=== PATIENT | male | born 2000 | race Caucasian/White ===

== ENCOUNTER 2023-08-29 18:02 | Inpatient (IN) ==
[~2023-08-29 18:02] MED LIST: KETAMINE HCL INJ 50 MG/ML 10 ML VIAL IV ONE; ROCURONIUM BROMIDE 10 MG/ML 5 ML VIAL IV ONE
[2023-08-29] MEDS ORDERED: STAT IV Infusion **Titration per Protocol STA ×3 (18:03→20:21)
--- OUTSIDE RECORDS SUMMARY | 2023-08-29 18:05 | External Medical Summary | Continuity of Care Document ---
Author Name Unknown Organization [facility] [address] [id number] Address [address] [place], [place] [id number] Encounter [facility] [id number] Date(s): 03/18/23 - 03/18/23 [facility] [address] [facility] [address] [facility] Medicine [address] [facility], [address] [address] Encounter Diagnosis Right foot pain(Discharge Diagnosis) - 03/18/23 Hallux valgus of right foot(Discharge Diagnosis) - 03/18/23 Discharge Disposition: Home or Self Care Attending Physician: DO Savage Mehwish Referring Physician: DO Savage Mehwish Allergies, Adverse Reactions, Alerts Substance Reaction Severity Status tree nuts Anaphylaxis Severe Active peanuts Anaphylaxis Severe Active Assessment and Plan Extracted from: Title:Office Visit Note Author:DO Savage Me hwish Date:03/18/23 1.Right foot pain 2.Hallux valgus of right foot Discussed that I suspect symptoms are likely due to MTP joint pain- from mild hallux valgus. Recommend use of oral NSAIDs, trial of a Srinivasan's extension insert. If this does not help with his symptoms, could consider US-guided injection of 1st MTP, along with US evaluation. Could consider MRI forefoot evaluation. Plan for f/u if not improving. Immunizations Given and Recorded Vaccine Date Status Refusal Reason tetanus/diphtheria/pertuss, acel (Tdap) 09/29/11 R ecorded Medications EpiPen 2-Guillermo 0.3 mg injectable kit Start: 12/02/18 9:01:00 EDT, 0.3 mg =, IM, ONCE, PRN: as needed for anaphylaxis Start Date: 12/02/18 Status: Ordered ProAir HFA 90 mcg/inh inhalation aerosol Start: 05/06/22 16:54:00 EST, 2 puff, inhaled, qid, Disp# 18 g, Refills: 3, PRN: as needed for wheezing, Pharmacy: [id number] Start Date: 05/06/22 Status: Ordered Mental Status 03/18/23 Barriers to Learning one year None evide nt Mandatory Health Literacy Documentation Yes Health Literacy Communication Barriers N ever Primary Language Luxembourgish Problem List Condition Confirmation Course Effective Dates Status Health St atus Informant Peanut allergy Confirmed Active Asthma Confirmed Active Diagnosis Diagnosis Type Effective Dates Health Status Cl inical Service Informant Right foot pain Discharge Diagnosis 03/18/23 Hallux valgus of right foot Discharge Diagnosis 03/18/23 Vital Signs Most recent to oldest [Reference Range]: 1 Height 183.5 cm (03/18/23 11:01 AM) Patient Weight 77.8 kg (03/18/23 11:01 AM) Body Mass Index 23.11 kg/m2 (03/18/23 11:01 AM) Social History Social History Type Response Smoking Status Never smoked cigaret guerda Sex Male Ortho Outpt Note * DO Savage Mehwish: PERFORM Event Display: Ortho Outpt Note Authored Date: Chief Complaint right foot pain History of Present Illness 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 Notes that his symptoms started approximately 1-2 months ago. He denies any acute injuryrelated to the onset. He denies any swelling or bruising. He notes that for 95% of the day does not hurt, but when he does dives to the righthe has excruciating pain that last forapproximately 1 minute. It is then sore for a period of time afterwards. He notes that he does not have any pain with running and sprinting. He notes that if he sits with his toes extendedwith axial pressure hedoes have some more soreness and pain. Over the past 3 weeks he has beenusing some tapewhich has not been helpful. He has also been usinga carbon fibermetatarsal insertwhich she has noted significantimprovement with. He has also beengoing to rehab and doing some strengthening of his intrinsic foot muscles. Physical Exam Vitals & Measurements HT:183.5cm WT:77.8kg WT:77.800kg(Dosing) BMI:23.11 PHQ2 Data(Data Documented on:03/18/2023 11:00) Emotional health assessment NEGATIVE GENERAL APPEARANCE: The patient is alert, oriented and in no acute distress. HEENT: Head is normocephalic/atraumatic. LUNGS: Respirations even and unlabored. EXTREMITIES: No cyanosis, clubbing or edema. NEUROLOGICAL: Grossly non-focal exam. SKIN: Warm and dry without any rash. MUSCULOSKELETAL: _ Right Foot/Ankle Exam Appearance: no edema no ecchymosisbruising no erythema mild hallux valgus noted Palpation: No bony TTP ROM: great toe flexion and extension is wnl, notes some discomfort with end ROM extension Strength: 5/5 great toe flexion and extension Sensation: sensation to light touchintact overL4, L5 and S1 dermatomes Diagnostic Results XR foot RT min 3V routine HISTORY: 22 years-old Male RIGHT FOOT PAIN acute right-sided foot pain COMPARISON: 07/31/2022 TECHNIQUE: 3 views of the right foot FINDINGS: Os trigonum. No acute fracture, dislocation or opaque foreign body. Unremarkable soft tissues. IMPRESSION: No acute fracture or dislocation. ACT 112: Negative or not required by law. The above report was generated using voice recognition software. It may contain grammatical, syntax or spelling errors. Electronically signed by: Brian Teran M.D. 03/18/2023 11:24 AM Assessment/Plan 1.Right foot pain 2.Hallux valgus of right foot Discussed that I suspect symptoms are likely due to MTP joint pain- from mild hallux valgus. Recommend use of oral NSAIDs, trial of a Srinivasan's extension insert. If this does not help with his symptoms, could consider US-guided injection of 1st MTP, along with US evaluation. Could consider MRI forefoot evaluation. Plan for f/u if not improving. Problem List/Past Medical History Ongoing Asthma Peanut allergy Medications albuterol(ProAir HFA 90 mcg/inh inhalation aerosol), 2 puff, inhaled, qid, PRN, 3 refills EPINEPHrine(EpiPen 2-Guillermo 0.3 mg injectable kit), 0.3 mg, IM, ONCE, PRN Allergies peanuts(Severe)Anaphylaxis tree nuts(Severe)Anaphylaxis Social History Smoking Status Never smoked cigarettes Family History Asthma: Mother. Heart disease: Unknown. Thyroid disease: Unknown. Health Status Family Member(s) Immunizations Vaccine Date Status tetanus/diphtheria/pertuss, acel (Tdap) 09/29/2011 Recorded Recommendations Health Maintenance Pending(in the next year) OverDue Adult Influenza Vaccine due12/06/22and every 1year Due Adult COVID-19 Vaccination due03/18/23Unknown Frequency Adult Tdap/Td Vaccine due03/18/23Unknown Frequency Hepatitis C Screening due03/18/23One-time only Pneumococcal Vaccine Adults and Adolescents with Chronic Illness due03/18/23One-time only Due In Future Body Mass Index not due until03/17/24and every 1year Satisfied(in the past 1 year) Satisfied Body Mass Index on03/18/23.Satisfied by [facility] [place] Electronic Signature on File Electronically Reviewed/Signed by: Karen Savage DO Author Signature Dt/Tm:03/18/2023 12:03 PM Division of Sports Medicine MM Patient Care team information Care Team Related Persons Name: YAMILETH NOEL Address: [address] [id number]
[2023-08-29] MEDS ORDERED: Patient's ALLERGY Info needs ENTERED SCH (18:15)
[2023-08-29] MEDS: EPINEPHrine/NSS 4 MG/254 ML BAG IV SCH (18:19)
--- NOTE | 2023-08-29 18:19 | Emergency Department Note ---
Impression & Plan Anaphylaxis, Allergic reaction, Acute respiratory distress, Acute respiratory acidosis ED Provider Note NAME: HAZEL DOMINGUEZ AGE: 23 SEX: M : 2000 ARRIVES VIA: Ambulance INFORMANT: EMS, the patient's girlfriend ED PROVIDER(S): Neo Lobo DO CHIEF COMPLAINT: Allergic reaction. HPI: The patient is a 23-year-old male who has a history of nut allergy who thinks he may have eaten a cookie that contained some sort of nuts. He started having symptoms around 5 PM. He went to a local drugstore and was given an EpiPen a DuoNeb and Benadryl. He took all these medications with only minimal relief. He started to worsen and his girlfriend called 911. The patient started to worsen on arrival. I did receive a prehospital notification. The patient received IM epinephrine steroids and Benadryl prior to arrival. He was also treated with IV epinephrine prior to arrival. He was placed on a nonrebreather mask. He was given a DuoNeb prior to arrival. History was very limited secondary to the patient's critical status. ROS: See above HPI for pertinent positives & negatives. A total of 10 systems reviewed and were otherwise negative. PAST MEDICAL HISTORY: See Below PAST SURGICAL HISTORY: See Below FAMILY HISTORY: See Below SOCIAL HISTORY: See Below HOME MEDICATIONS: See Below ALLERGIES: See Below VITALS: See Below PHYSICAL EXAMINATION: GENERAL: The patient is obtunded and not able to answer questions. EYES: The conjunctivae are injected bilaterally. The pupils are round and reactive. EARS, NOSE, MOUTH AND THROAT: The nose is without any evidence of any deformity. Mild swelling was noted on the upper lip as well as the tongue NECK: The neck is nontender and supple. RESPIRATORY: Shallow ineffective respirations were noted bilaterally. There is very poor air movement with bronchospasm bilaterally CARDIOVASCULAR: Regular rate and rhythm noted there no murmurs rubs or gallops normal S1 normal S2. GASTROINTESTINAL: The abdomen is soft. Abdomen is nontender. MUSCULOSKELETAL/EXTREMITIES: There is no evidence of gross deformity full range of motion is noted in the hips and shoulders. SKIN: Skin is warm and dry. There is diffuse urticaria noted. There is no pedal edema NEUROLOGIC: Patient is obtunded and will not follow commands or answer questions. He localizes pressure stimuli and appears to move both extremities symmetrically but minimally. MEDICAL DECISION MAKING: The patient is a 23-year-old male who presented to the emergency department and anaphylaxis. The patient was treated appropriately prior to arrival. Himself he took an EpiPen as well as Benadryl. He was also given a bronchodilator at the pharmacy. This did not significantly relieve his symptoms so 911 was called. The patient further received epinephrine and steroids. Upon arrival to the emergency department the patient was obtunded. He was in need of immediate airway intervention. The patient was intubated in the usual fashion. He was placed on an epinephrine drip as well as sedation. He was treated with IV fluids in emergency department. He was also treated with Pepcid. I discussed the patient's laboratory and radiographic studies with his family members. I discussed his condition with the gamma operator as well as the on-call [facility] hospitalist group. On reevaluation his urticarial rash had significantly improved. The patient also had improvement of his pulse rate. The epinephrine drip was weaned down. He was treated with an hour-long DuoNeb in the emergency department. Initial pH was below 7. Subsequent pH was improved but not quite normal. Triage Nursing notes reviewed. Prior medical records reviewed Vital Signs: reviewed and remarkable for initial hypertension and tachycardia. The patient was also hypoxic on arrival. Differential diagnosis: Allergic reaction, anaphylaxis, urticaria, Bagley-Garland syndrome, toxic epidermal necrolysis, erythema multiforme, contact dermatitis, cellulitis, as well as other pathologies. ER treatment provided: See below Diagnostics interpreted by me: ECG: EKG was obtained in the emergency department. My interpretation is sinus tachycardia at 125 bpm. There is no ectopy. There is no acute ST segment abnormalities noted. No previous tracing was available. Cardiac Monitoring: An order was placed for continuous cardiac monitoring. The monitor shows a rate of 108 bpm with sinus tachycardia. Laboratory studies: As stated above and show below. Imaging studies: See below. Radiographic imaging was reviewed by myself Consultation(s): I discussed this case with Dr. Hyde who is on-call for the gamma operator group. ED COURSE: Procedures: Endotracheal Intubation Indication anaphylaxis. The patient was on 100% oxygen via NRB prior to the procedure. Suction, airway equipment, RSI drugs, respiratory equipment, and appropriate personnel were prepared prior to the initiation of the procedure. A time out was taken. Induction was performed with ketamine and rocuronium. After observing the clinical benefit of the medications, the airway was easily visualized utilizing a glide scope. A 8.0 size ETT tube was placed atraumatically to 25 cm using standard technique. The cuff inflated without signs of malfunction. There were bilateral breath sounds, positive colormetric change, no gastric sounds, a good capnography waveform, and post procedure pulse oximetry was 94%. Post intubation sedation and paralysis was administered using propofol. After x-ray the endotracheal tube was advanced 1 cm. There were no complications. Critical Care: I have personally spent greater than 55 minutes of critical care time in the direct management of this patient. This includes bedside care, interpretation of diagnostic studies, and testing, discussion with consultants, patient, and family members, and other required patient management activities. This 55 minutes is in excess of all separately billable procedures. Past Med/Surg History Medical History (Updated 08/29/23 @ 20:33 by KAIDEN Roy) Asthma Social History Smoking Status: Unknown if ever smoked Allergies Allergies Allergy/AdvReac Type Severity Reaction Status Date / Time peanut Allergy Severe Anaphylaxis Verified 08/29/23 18:23 tree nut Allergy Severe Anaphylaxis Verified 08/29/23 18:23 Home Meds Home Medications Medication Instructions Recorded Confirmed albuterol sulfate 90 mcg/actuation 2 puff inhalation Q6 PRN Wheezing 08/29/23 08/29/23 aerosol inhaler diphenhydramine HCl 25 mg tablet 75 mg PO ONCE PRN Allergic Reaction 08/29/23 08/29/23 epinephrine 0.3 mg/0.3 mL 0.3 mg subcut UD PRN Anaphylaxis 08/29/23 08/29/23 injection, auto-injector Results & Data (ED) Vital Signs Vital Signs - 24 hr 08/29/23 18:13 08/29/23 18:14 08/29/23 18:14 Pulse Rate 129 H 131 H Pulse Rate from SpO2 Sensor 129 H Respiratory Rate 15 27 H Blood Pressure 140/97 Blood Pressure Mean 111 Pulse Oximetry 95 93 Oxygen Delivery Method Non-rebreather Mechanical Vent Fraction of Inspired Oxygen Sepsis Recent Fever Within 48 Hours No Sepsis New/Unexplained Change in Mental Status No Sepsis Action Taken by Nursing No Action Required End-Tidal CO2 08/29/23 18:15 08/29/23 18:19 08/29/23 18:22 Pulse Rate 131 H 128 H Pulse Rate from SpO2 Sensor 131 H Respiratory Rate 16 Blood Pressure Blood Pressure Mean Pulse Oximetry 94 80 L Oxygen Delivery Method Non-rebreather Fraction of Inspired Oxygen Sepsis Recent Fever Within 48 Hours Sepsis New/Unexplained Change in Mental Status Sepsis Action Taken by Nursing End-Tidal CO2 08/29/23 18:22 08/29/23 18:22 08/29/23 18:30 Pulse Rate 126 H 121 H Pulse Rate from SpO2 Sensor 126 H 121 H Respiratory Rate 16 16 Blood Pressure 150/83 H Blood Pressure Mean 109 Pulse Oximetry 95 96 Oxygen Delivery Method Fraction of Inspired Oxygen Sepsis Recent Fever Within 48 Hours Sepsis New/Unexplained Change in Mental Status Sepsis Action Taken by Nursing End-Tidal CO2 08/29/23 18:44 08/29/23 18:50 08/29/23 19:00 Pulse Rate 119 H 113 H 121 H Pulse Rate from SpO2 Sensor Respiratory Rate 20 20 20 Blood Pressure 145/82 H 167/108 H Blood Pressure Mean 103 127 Pulse Oximetry 99 94 96 Oxygen Delivery Method Mechanical Vent Mechanical Vent Fraction of Inspired Oxygen 60 60 60 Sepsis Recent Fever Within 48 Hours Sepsis New/Unexplained Change in Mental Status Sepsis Action Taken by Nursing End-Tidal CO2 44 Home Medications Current Medication List: was personally reviewed by me Laboratory Data Attestation: I reviewed the patient's lab results. 08/29/23 18:20 08/29/23 18:20 Lab Results 08/29/23 Range/Units 18:20 WBC 15.60 H (4.8-10.8) K/ul RBC 5.31 (4.70-6.10) M/uL Hgb 15.6 (14.0-18.0) g/dl Hct 47.4 (42.0-52.0) % MCV 89.3 (80.0-100.0) fL MCH 29.4 (25.0-34.0) pg MCHC 32.9 (32.0-36.0) g/dL RDW Std Deviation 38.6 (36.4-46.3) fL RDW Coeff of Paul 11.9 (11.5-14.5) % Plt Count 309 (130-400) K/uL MPV 12.4 (9.4-12.4) fL Immature Gran % (Auto) 1.0 % Neut % (Auto) 33.1 % Lymph % (Auto) 58.1 % [place] % (Auto) 5.8 % Eos % (Auto) 1.7 % Baso % (Auto) 0.3 % Neut # (Auto) 5.18 (1.40-6.50) K/uL Lymph # (Auto) 9.06 H (1.20-3.40) K/uL [place] # (Auto) 0.90 H (0.11-0.59) K/uL Eos # (Auto) 0.26 (0.00-0.50) K/uL Baso # (Auto) 0.05 (0.00-0.20) K/uL Immature Gran # (Auto) 0.15 (0.01-0.20) K/uL Sodium 138 (136-145) mmol/L Potassium TNP Chloride 102 (98-107) mmol/L Carbon Dioxide 22 (21-32) mmol/L Anion Gap 14 H (3-11) BUN 13 (6-23) mg/dl Creatinine 1.44 H (0.6-1.4) mg/dl Est Cr Clr Drug Dosing 82.4 ml/min Est GFR ( Amer) 78.8 ml/min Est GFR (Non-Af Amer) 68.0 ml/min BUN/Creatinine Ratio 9.0 L (10-20) Glucose 212 H (70-99(Fasting)) mg/dl Calcium 9.1 (8.6-10.3) mg/dl Total Bilirubin 0.5 (0.2-1.0) mg/dl AST TNP ALT 15 (7-52) U/L Alkaline Phosphatase 62 (34-104) U/L Total Protein 7.4 (6.0-8.3) gm/dl Albumin 4.6 (3.4-5.0) gm/dl Globulin 2.8 (2.5-4.0) gm/dl Albumin/Globulin Ratio 1.6 (0.9-2) Administered Medications Albuterol (Albut/Ipratrop 3mg/0.5mg Neb 3 Ml Vial) 3 ml NEB Q6R [facility]; Protocol Stop: 09/29/23 00:59 Last Admin: 08/29/23 20:17 Dose: 3 ml Documented By: JENIFER Epinephrine HCl () 4 mg in 254 mls @ 6.447 mls/hr IV .Q24H [facility]; Protocol Stop: 09/28/23 18:14 Last Titration: 08/29/23 19:34 Dose: 0 mcg/kg/min, 0 mls/hr Documented By: Admin: 08/29/23 18:19 Dose: 0.02 mcg/kg/min, 6.4 mls/hr Documented By: MES Co-signed By: SABINO Propofol (Diprivan) 1,000 mg in 100 mls @ 25.92 mls/hr IV .Q3H52M [facility]; Protocol Stop: 09/01/23 18:29 Last Titration: 08/29/23 19:32 Dose: 50 mcg/kg/min, 25.9 mls/hr Documented By: Titration: 08/29/23 19:22 Dose: 40 mcg/kg/min, 20.7 mls/hr Documented By: Titration: 08/29/23 19:11 Dose: 30 mcg/kg/min, 15.6 mls/hr Documented By: Titration: 08/29/23 19:01 Dose: 25 mcg/kg/min, 13 mls/hr Documented By: Admin: 08/29/23 18:21 Dose: 20 mcg/kg/min, 10.4 mls/hr Documented By: MES Co-signed By: SABINO Midazolam HCl (Versed) 125 mg in 250 mls @ 2 mls/hr IV .Q96H [facility]; Protocol Stop: 09/28/23 20:29 Last Admin: 08/29/23 20:34 Dose: 1 mg/hr, 2 mls/hr Documented By: BRIJESH Co-signed By: YADI Propofol (Propofol Bolus From Bag) 20 mg IV Q5M PRN PRN Reason: Sedation Stop: 09/01/23 18:18 Last Admin: 08/29/23 19:05 Dose: 20 mg Documented By: JT Co-signed By: ZOEY Discontinued Medications Albuterol (Albut/Ipratrop 3mg/0.5mg Neb 3 Ml Vial) 12 ml NEB ONE ONE; Protocol Stop: 08/29/23 18:06 Last Admin: 08/29/23 20:05 Dose: Not Given Documented By: JENIFER Diphenhydramine HCl (Diphenhydramine 50 Mg/Ml Vial) 25 mg IV NOW STA Stop: 08/29/23 18:04 Last Admin: 08/29/23 18:35 Dose: 25 mg Documented By: BILLY Sodium Chloride (Nss) 1,000 mls @ 999 mls/hr IV .Q1H1M ELISEO Stop: 08/29/23 19:15 Last Infusion: 08/29/23 19:24 Dose: Infused Documented By: JEAN PAUL Admin: 08/29/23 18:23 Dose: 999 mls/hr Documented By: BLILY Famotidine (Pepcid 20mg Iv Push) 20 mg in 5 mls @ 2.5 mls/min IV NOW STA Stop: 08/29/23 18:04 Last Admin: 08/29/23 18:31 Dose: 2.5 mls/min Documented By: BILLY Midazolam HCl (Midazolam Hcl 1 Mg/Ml 2ml Vial) 2 mg IV NOW STA Stop: 08/29/23 19:13 Last Admin: 08/29/23 19:22 Dose: 2 mg Documented By: JEAN PAUL Midazolam HCl (Midazolam Hcl 125mg/250ml D5w) Confirm Administered Dose 125 mg IV .STK-MED ONE Stop: 08/29/23 20:25 Last Admin: 08/29/23 20:35 Dose: Not Given Documented By: CLC Miscellaneous (Rapid Sequence Induction Bag) Confirm Administered Dose 1 each N/A .STK-MED ONE Stop: 08/29/23 18:05 Last Admin: 08/29/23 20:13 Dose: Not Given Documented By: JEAN PAUL Propofol (Propofol Iv Emulsion 10 Mg/Ml 100 Ml Vial) Confirm Administered Dose 1,000 mg IV .STK-MED ONE Stop: 08/29/23 18:17 Last Admin: 08/29/23 19:00 Dose: Not Given Documented By: JEAN PAUL Imaging Data Attestation: I personally reviewed and interpreted this imaging study as follows: My Impression: 1 view chest x-ray was obtained in the emergency department. My interpretation is endotracheal tube terminates appropriately above the killian, no free air, final report below Radiologist's Impression: Chest X-Ray 08/29/23 18:03 SUPINE PORTABLE AP CHEST RADIOGRAPHS CLINICAL HISTORY: Respiratory arrest. COMPARISON STUDY: No previous studies for comparison. FINDINGS: The endotracheal tube was advanced following the first chest radiograph. On the final image, the tip of the endotracheal tube is 5.1 cm above the killian. There is no pneumothorax or pleural effusion on supine exam. No airspace opacities are present. Pulmonary vascularity is normal. Cardiomediastinal silhouette is unremarkable. IMPRESSION: 1. Appropriately positioned endotracheal tube. 2. No acute cardiopulmonary findings. ACT 112: Negative or not required by law. Electronically signed by: Mor Singleton M.D. 08/29/2023 6:25 PM Discharge Plan Visit Data Chief Complaint: Allergic Reaction ED Provider: Neo Lobo Discharge Problem: Anaphylaxis, Allergic reaction, Acute respiratory distress, Acute respiratory acidosis Patient Disposition: Admitted As Inpatient Discharge Instructions Interventions: ED Discharge Assessment Last Done: 08/29/23 19:42 Discharge Problem: Anaphylaxis Qualifiers: Encounter type: initial encounter Qualified Code(s): T78.2XXA - Anaphylactic shock, unspecified, initial encounter Allergic reaction Qualifiers: Encounter type: initial encounter Qualified Code(s): T78.40XA - Allergy, unspecified, initial encounter
[2023-08-29] MEDS: propofoL 1,000 MG/100 ML VIAL IV SCH (18:21)
[2023-08-29] MEDS: SODIUM CHLORIDE 0.9% 1,000 ML IV SCH (18:23)
--- NOTE | 2023-08-29 18:26 | XRay Report ---
SUPINE PORTABLE AP CHEST RADIOGRAPHS CLINICAL HISTORY: Respiratory arrest. COMPARISON STUDY: No previous studies for comparison. FINDINGS: The endotracheal tube was advanced following the first chest radiograph. On the final image , the tip of the endotracheal tube is 5.1 cm above the killian. There is no pneumothorax or pleural ef fusion on supine exam. No airspace opacities are present. Pulmonary vascularity is normal. Cardiomedi astinal silhouette is unremarkable. IMPRESSION: 1. Appropriately positioned endotracheal tube. 2. No acute cardiopulmonary findings. ACT 112: Negative or not required by law. Electronically signed by: Mor Singleton M.D. 08/29/2023 6:25 PM
[2023-08-29] MEDS: FAMOTIDINE 20MG IV PUSH 20 MG/5 ML SYR IV STA (18:31)
[2023-08-29] MEDS: diphenhydrAMINE 50 MG/ML VIAL IV STA (18:35)
[2023-08-29 18:47] LABS: Hematocrit (blood only) 47.4 % (42.0-52.0); Hemoglobin 15.6 g/dl (14.0-18.0); Mean Corpuscular Hemoglobin 29.4 pg (25.0-34.0); Mean Corpuscular Hgb Conc 32.9 g/dL (32.0-36.0); Mean Corpuscular Volume 89.3 fL (80.0-100.0); Mean Platelet Volume 12.4 fL (9.4-12.4); Platelet Count 309 K/uL (130-400); RDW Coefficient of Variation 11.9 % (11.5-14.5); RDW Standard Deviation 38.6 fL (36.4-46.3); Red Blood Count 5.31 M/uL (4.70-6.10)
[2023-08-29] MEDS: PROPOFOL IV EMULSION 10 MG/ML 100 ML VIAL IV ONE (19:00)
[2023-08-29] MEDS: PROPOFOL BOLUS FROM BAG IV PRN (19:05)
--- NOTE | 2023-08-29 19:10 | History & Physical Report ---
Date of Service August 29, 2023 Assessment & Plan (1) Anaphylaxis: Plan: Severe anaphylaxis requiring intravenous epinephrine drip and intubation Ate a cookie around 5 PM. Known allergy to nuts. Continue Solu-Medrol, diphenhydramine, epinephrine intravenously Admit to ICU (2) Acute respiratory failure with hypoxia and hypercapnia: Plan: Currently intubated and sedated Duonebs QID Repeat ABG in 1 hour (3) Acute respiratory acidosis: Plan: Initial POC ABG after intubation with pH 6.974, PaCO2 110, tidal volume increased following this Repeat ABG in 1 hour Plan VTE prophylaxis - low risk Diet - NPO Disposition - admit to ICU Admission and Anticipated Discharge Date Admission Date: August 29, 2023 History of Present Illness Chief Complaint: Unresponsive state Primary Care Provider: NO PCP Mitchel Correia is a 23 year old male who presents to the ER with anaphylaxis, unresponsiveness and acute respiratory failure with hypoxia and hypercapnia. Unable to get any history from the patient due to unresponsive/sedated state. Reportedly had a cookie with knots and at around 5 PM. Received 2 doses of epinephrine, Benadryl, Solu-Medrol, magnesium prehospital. O2 saturations 80% and wheezing on 15 L nonrebreather mask on arrival in the ER. In the ER he was emergently intubated, placed on propofol and epinephrine drip. Allergies Allergy/AdvReac Type Severity Reaction Status Date / Time peanut Allergy Severe Anaphylaxis Verified 08/29/23 18:23 tree nut Allergy Severe Anaphylaxis Verified 08/29/23 18:23 Home Medications Medication Instructions Recorded Confirmed Type albuterol sulfate 90 mcg/actuation 2 puff inhalation Q6 PRN Wheezing 08/29/23 08/29/23 History aerosol inhaler diphenhydramine HCl 25 mg tablet 75 mg PO ONCE PRN Allergic Reaction 08/29/23 08/29/23 History epinephrine 0.3 mg/0.3 mL 0.3 mg subcut UD PRN Anaphylaxis 08/29/23 08/29/23 History injection, auto-injector Past Med/Surg History Social History Smoking Status: Unknown if ever smoked Review of Systems Review of Systems: Unobtainable due to endotracheal tube and Unobtainable due to reduced consciousness Physical Exam Constitutional: WD/WN, vitals as above ENMT: Mouth: + lip abnormality (Mild swelling) Respiratory: Intubated and sedated, reduced breath sounds throughout with expiratory wheeze Cardiovascular: Rate/Rhythm: regular rhythm and + tachycardic Heart Sounds: no murmur Extremities: normal capillary refill; no calf tenderness and no pedal edema Gastrointestinal (Abdomen): normal bowel sounds, soft, nontender, no hepatosplenomegaly Skin: no rashes, warm and dry Neurologic: + not awake (Intubated and sedated) Psychiatric: Orientation: + not alert Results & Data Results & Data Vital Signs (Past 12 Hours) Vital Signs Pulse Resp BP Pulse Ox O2 Del Method FiO2 08/29/23 18:44 119 H 20 99 60 08/29/23 18:30 121 H 16 96 08/29/23 18:22 126 H 16 95 08/29/23 18:22 150/83 H 08/29/23 18:22 80 L Non-rebreather 08/29/23 18:19 128 H 08/29/23 18:15 131 H 16 94 08/29/23 18:14 131 H 27 H 140/97 93 Mechanical Vent 08/29/23 18:14 Non-rebreather 08/29/23 18:13 129 H 15 95 Laboratory Results Abnormal lab results 08/29/23 Range/Units 18:20 WBC 15.60 H (4.8-10.8) K/ul Anion Gap 14 H (3-11) Creatinine 1.44 H (0.6-1.4) mg/dl BUN/Creatinine Ratio 9.0 L (10-20) Glucose 212 H (70-99(Fasting)) mg/dl Diagnostic Findings SUPINE PORTABLE AP CHEST RADIOGRAPHS CLINICAL HISTORY: Respiratory arrest. COMPARISON STUDY: No previous studies for comparison. FINDINGS: The endotracheal tube was advanced following the first chest radiograph. On the final image, the tip of the endotracheal tube is 5.1 cm above the killian. There is no pneumothorax or pleural effusion on supine exam. No airspace opacities are present. Pulmonary vascularity is normal. Cardiomediastinal silhouette is unremarkable. IMPRESSION: 1. Appropriately positioned endotracheal tube. 2. No acute cardiopulmonary findings. Medications Administered ER medications given: Normal saline 1 L bolus Diphenhydramine 25 mg IV Famotidine 20 mg IV DuoNeb 12 mL neb Propofol IV Midazolam 2 mg IV Epinephrine 0.02 mcg/kg/min IV ECG Rate (beats per minute): 125 Rhythm: sinus tachycardia Findings: + RBBB Comparison ECG Date: no prior available Code Status & VTE Plan Code Status Full - presumed VTE Prophylaxis Plan VTE Prophylaxis will be ordered: No PG Care Time/CCT Total # of Minutes Spent Total Time Spent with Patient: Total time spent is greater than 50% in coordination of care (as documented) at patient's floor/unit and/or counseling patient: Coding Level of Care Code 56988 INT INP/OBS CARE MIN Diagnoses Anaphylaxis T78.2XXA Encounter type: initial encounter Acute respiratory failure with hypoxia and hypercapnia J96.01; J96.02 Acute respiratory acidosis J96.02 (1) Anaphylaxis Encounter type: initial encounter Qualified Code(s): T78.2XXA - Anaphylactic shock, unspecified, initial encounter
[2023-08-29 19:13] LABS: Alanine Aminotransferase 15 U/L (7-52); Albumin Globulin Ratio 1.6 (0.9-2); Albumin Level 4.6 gm/dl (3.4-5.0); Alkaline Phosphatase 62 U/L (34-104); Anion Gap 14 (3-11); Bilirubin,Total 0.5 mg/dl (0.2-1.0); Blood Urea Nitrogen 13 mg/dl (6-23); Calcium 9.1 mg/dl (8.6-10.3); Carbon Dioxide 22 mmol/L (21-32); Chloride 102 mmol/L (98-107); Creatinine Clr Calc Pharmacy 82.4 ml/min; Est GFR (African American) 78.8 ml/min; Globulin 2.8 gm/dl (2.5-4.0); Glucose 212 mg/dl (70-99(Fasting)); Sodium 138 mmol/L (136-145); Total Protein 7.4 gm/dl (6.0-8.3)
[2023-08-29] MEDS: MIDAZOLAM HCL 1 MG/ML 2ML VIAL IV STA (19:22)
[2023-08-29 19:51] LABS: iSTAT Arterial Blood Gas HCO3 22 meg/L (19-24); iSTAT Arterial Blood Gas pCO2 60 mmHg (35-46); iSTAT Arterial Blood Gas pH 7.17 (7.35-7.45); iSTAT Arterial Blood Gas pO2 108 mmHg (80-95); iSTAT Carbon Dioxide 24 mmol/L (24-31); iSTAT Hematocrit 40 % (42-52); iSTAT Hemoglobin 13.6 g/dl (14.0-18.0); iSTAT Potassium 3.2 mmol/L (3.3-5.0); iSTAT Sodium 139 mmol/L (135-144)
[2023-08-29 19:53] LABS: Basophils # (auto) 0.05 K/uL (0.00-0.20); Basophils % (auto) 0.3 %; Eosinophils # (auto) 0.26 K/uL (0.00-0.50); Eosinophils % (auto) 1.7 %; Immature Granulocytes # (auto) 0.15 K/uL (0.01-0.20); Lymphocytes # (auto) 9.06 K/uL (1.20-3.40); Lymphocytes % (auto) 58.1 %; Monocytes % (auto) 5.8 %; Neutrophils # (auto) 5.18 K/uL (1.40-6.50); Neutrophils % (auto) 33.1 %
[2023-08-29] MEDS: ALBUT/IPRATROP 3MG/0.5MG NEB 3 ML VIAL NEB ONE (20:05)
--- NOTE | 2023-08-29 20:12 | Critical Care Consultation ---
Date of Consultation August 29, 2023 Assessment & Plan (1) Acute respiratory failure with hypoxia and hypercapnia: Reason Critically Ill: 23-year-old male with past medical history of asthma and peanut/tree nut allergy presents to the ICU following anaphylactic reaction requiring epinephrine drip and intubation. Neuro - Sedation: Propofol, Versed drip Cardiac - Currently hemodynamically stable, normotensive in sinus rhythm on monitor. Was temporarily on epinephrine drip which has since been weaned off. Continuous monitoring telemetry Respiratory - Acute hypoxic and hypercapnic respiratory failuresecondary to anaphylactic reaction to peanuts/tree nuts. Patient noted to be significantly hypoxic on nonrebreather on arrival to the ED, was emergently intubated for respiratory distress and follow-up ABG with severe hypercapnia. He received 125 mg of Solu- Medrol, IV Benadryl prior to arrival. Of note, patient does have history of asthma and is reported to use albuterol inhaler twice per day. He is not on a LABA. He was placed on epinephrine drip which has since been weaned off. -Chest x-ray with appropriate placement of ET tube, otherwise unremarkable -Continue IV Solu-Medrol -Will hold on further Benadryl for now as patient was noted to take p.o. Benadryl x 3 earlier today (unsure of dose), and had IV Benadryl in the emergency department -Scheduled DuoNeb every 6 hours -Repeat ABG with improvement in hypercapnia. Will repeat ABG, and adjust vent as appropriate -Continuous end-tidal CO2 and pulse ox monitoring GI - N.p.o. RENAL/LYTES - AKIcreatinine mildly elevated at 1.4. No known history of kidney disease. Patient was reported to be drinking alcohol today, may be slightly dehydrated. Will start on IV fluids. Avoid nephrotoxins and renally adjust medications. Follow routine BMP - Foleystrict I's and ENDO - No history of diabetes or thyroid disease. ICU hyperglycemic protocol HEME - H&H stable, monitor routine CBC ID - No indication for infectious process at this time. Trend fever curve LINES/IV ACCESS - Peripheral IVs DVT PROPHYLAXIS - SCDs I have personally spent 50 minutes of critical care time in the direct management of this patient. This is a life/limb threatening event. This includes time spent evaluating patient, direct bedside care, chart review, placing orders, interpretation of diagnostic studies, discussion with consultants, patient, and family members, as well as other required patient management activities. This time is exclusive of all separately billable procedures, and teaching time and separate from and in addition to any other critical care service time. Thank you for allowing us to participate in the care of this patient. Please refer to my attending physician's documentation for any further recommendations. (2) Anaphylaxis: (3) Allergic reaction: (4) Asthma: History of Present Illness Attending Physician: Chuckie Angeles MD History of Present Illness Patient is a 23-year-old male with past medical history of peanut and tree allergy, asthma who presented to the emergency department earlier today in acute respiratory distress. Patient's girlfriend and brother were at the bedside and with the patient at the time of the incident. They stated that he had eaten a doughnut with peanut butter icing earlier today, but scraped off the icing and took a Benadryl. He later ate a cookie at an event that may have contained nuts and became anaphylactic at that time with severe respiratory distress. Patient lives in [place] with his mother who is currently in route, and was visiting his brother and girlfriend who are students at [employer]. He was brought to the emergency department via EMS, and received IM epi x 2. On arrival to the hospital, he was emergently intubated and was started on epinephrine drip. He was also given IV Benadryl. Girlfriend reports that he took Benadryl p.o. x 3 throughout the day prior to this event. Initial ABG with severe respiratory acidosis and hypercapnia, improved on repeat. He is currently receiving albuterol and Solu-Medrol ordered. Patient now being transferred to ICU for further management at this time. Allergies Allergy/AdvReac Type Severity Reaction Status Date / Time peanut Allergy Severe Anaphylaxis Verified 08/29/23 18:23 tree nut Allergy Severe Anaphylaxis Verified 08/29/23 18:23 Home Medications Medication Instructions Recorded Confirmed Type albuterol sulfate 90 mcg/actuation 2 puff inhalation Q6 PRN Wheezing 08/29/23 08/29/23 History aerosol inhaler diphenhydramine HCl 25 mg tablet 75 mg PO ONCE PRN Allergic Reaction 08/29/23 08/29/23 History epinephrine 0.3 mg/0.3 mL 0.3 mg subcut UD PRN Anaphylaxis 08/29/23 08/29/23 History injection, auto-injector Patient History Medical History Asthma Social History Smoking Status: Never smoker Hx Alcohol Use: Yes Alcohol type: beer and wine Hx Substance Use: No Preferred Language: Syriac Communication Ability: Unable Director Of Accounting Required: No Beliefs That Will Affect Care: None Current Living Situation: Parent Feels Safe at Home: Yes Assistive Devices: None Review of Systems Review of Systems: All systems reviewed & are unremarkable except as noted in HPI & below Physical Exam Constitutional: average body habitus and + mechanically ventilated Eyes: PERRL, conjunctivae normal, anicteric sclerae ENMT: external ear and nose normal, oropharynx normal Neck: trachea midline, no thyromegaly Respiratory: normal respiratory effort, lungs clear to auscultation Cardiovascular: RRR, no murmur, no edema Heart Sounds: normal S1 and normal S2 Extremities: no edema Gastrointestinal (Abdomen): normal bowel sounds, soft, nontender, no hepatosplenomegaly Musculoskeletal: no cyanosis or clubbing, extremities motor strength 5/5 Skin: no rashes, warm and dry Neurologic: PERRLA, cough gag corneal intact. Moves all extremities. Exam limited due to sedation Psychiatric: Unable to assess due to sedation Genitourinary: Indwelling Painting catheter present, urine yellow and clear Results & Data Results & Data Vital Signs (Past 12 Hours) Vital Signs Pulse Resp BP Pulse Ox O2 Del Method FiO2 08/29/23 19:21 106 H 20 134/83 99 Mechanical Vent 60 08/29/23 19:20 110 H 18 160/107 H 99 Mechanical Vent 60 08/29/23 19:00 121 H 20 167/108 H 96 Mechanical Vent 60 08/29/23 18:50 113 H 20 145/82 H 94 Mechanical Vent 60 08/29/23 18:44 119 H 20 99 60 08/29/23 18:30 121 H 16 96 08/29/23 18:22 126 H 16 95 08/29/23 18:22 150/83 H 08/29/23 18:22 80 L Non-rebreather 03/23/24 18:19 128 H 08/29/23 18:15 131 H 16 94 08/29/23 18:14 131 H 27 H 140/97 93 Mechanical Vent 08/29/23 18:14 Non-rebreather 08/29/23 18:13 129 H 15 95 Coding Level of Care Code 95843 CRITICAL CARE 1ST 30-74M Diagnoses Acute respiratory failure with hypoxia and hypercapnia J96.01; J96.02 Anaphylaxis T78.2XXA Encounter type: initial encounter Allergic reaction T78.40XA Encounter type: initial encounter Asthma J45.909 (2) Anaphylaxis Encounter type: initial encounter Qualified Code(s): T78.2XXA - Anaphylactic shock, unspecified, initial encounter (3) Allergic reaction Encounter type: initial encounter Qualified Code(s): T78.40XA - Allergy, unspecified, initial encounter
[2023-08-29] MEDS: RAPID SEQUENCE INDUCTION BAG ONE (20:13)
[2023-08-29] MEDS: ALBUT/IPRATROP 3MG/0.5MG NEB 3 ML VIAL NEB SCH (20:17)
[2023-08-29] MEDS: MIDAZOLAM HCL 125 MG/250 ML BAG IV SCH (20:34)
[2023-08-29] MEDS: MIDAZOLAM HCL 125MG/250ML D5W IV ONE (20:35)
[2023-08-29] MEDS: PLASMA-LYTE A 1,000 ML IV SCH (20:44)
[2023-08-29] MEDS: ICU Protocol for HYPERglycemia SCH (21:04)
[2023-08-29 21:14] LABS: Appearance Urine Clear (Clear); Bacteria Urine Automated Negative (Negative); Bilirubin Urine Negative (Negative); Blood Urine Negative (Negative); Color Urine Yellow; Glucose Urine UA Negative (Negative); Ketones Urine Negative (Negative); Leukocyte Esterase Urine Negative (Negative); Nitrite Urine Negative (Negative); Protein Urine Trace (Negative); RBC Urine Automated 0-4 /hpf (0-4); Specific Gravity Urine 1.012 (1.000-1.030); Urobilinogen Urine Negative (Negative); pH Urine 5.5 (4.5-7.5)
[2023-08-29] MEDS: methylPREDNISolone 125 MG in SYRINGE 0 ML IV ONE (21:16)
[2023-08-29 21:19] LABS: Potassium 3.7 mmol/L (3.5-5.1)
[2023-08-29 21:30] LABS: Cast Urine Automated 0 /lpf (0-5)
[2023-08-29 21:37] LABS: Amphetamines+Metham, Urine Neg (Neg); Barbiturates, Urine Neg (Neg); Benzodiazepine, Urine Pos (Neg); Cocaine, Urine Neg (Neg); MDMA (Ecstacy), Urine Neg (Neg); Marijuana, Urine Neg (Neg); Methadone, Urine Neg (Neg); Opiate, Urine Neg (Neg); Phencyclidine, Urine Neg (Neg)
[2023-08-29 21:57] LABS: Adenovirus PCR Not Detected (NotDetected); Bordetella parapertussis PCR Not Detected (NotDetected); Bordetella pertussis PCR Not Detected (NotDetected); Chlamydia pneumoniae PCR Not Detected (NotDetected); Coronavirus 229E PCR Not Detected (NotDetected); Coronavirus CoV-2 (COVID19)PCR Not Detected (NotDetected); Coronavirus HKU1 PCR Not Detected (NotDetected); Coronavirus NL63 PCR Not Detected (NotDetected); Coronavirus OC43PCR Not Detected (NotDetected); Human Metapneumovirus PCR Not Detected (NotDetected); Influenza A PCR Not Detected (NotDetected); Influenza B PCR Not Detected (NotDetected); Mycoplasma pneumoniae PCR Not Detected (NotDetected); Parainfluenza Virus 1 PCR Not Detected (NotDetected); Parainfluenza Virus 2 PCR Not Detected (NotDetected); Parainfluenza Virus 3 PCR Not Detected (NotDetected); Parainfluenza Virus 4 PCR Not Detected (NotDetected); Respiratory Syncytial VirusPCR Not Detected (NotDetected); Rhinovirus/Enterovirus PCR Not Detected (NotDetected)
[2023-08-29] MEDS: MIDAZOLAM BOLUS FROM BAG IV PRN (22:00)
[2023-08-29 22:15] LABS: iSTAT Allen Test Pass; iSTAT Art Bld Gas pCO2 Correct 26 mmHg (35-46); iSTAT Art Bld Gas pH Corrected 7.429 (7.35-7.45); iSTAT Arterial Blood Gas HCO3 18 meg/L (19-24); iSTAT Arterial Blood Gas pCO2 27 mmHg (35-46); iSTAT Arterial Blood Gas pH 7.42 (7.35-7.45); iSTAT Arterial Blood Gas pO2 176 mmHg (80-95); iSTAT Arterial Blood Gas pO2 C 172; iSTAT Carbon Dioxide 18 mmol/L (24-31); iSTAT FiO2 40 %; iSTAT Hematocrit 40 % (42-52); iSTAT Hemoglobin 13.6 g/dl (14.0-18.0); iSTAT Potassium 3.9 mmol/L (3.3-5.0); iSTAT Site R Radial; iSTAT Sodium 139 mmol/L (135-144)
[2023-08-29] MEDS: POTASSIUM CHLORIDE / WTR 10 MEQ/100 ML PLCT IV SCH (22:17)
[2023-08-29 22:20] LABS: Magnesium 2.2 mg/dl (1.7-2.4)
[2023-08-29 23:25] LABS: BUN Creatinine Ratio 11.7 (10-20); Calcium 8.8 mg/dl (8.6-10.3); Creatinine Clr Calc Pharmacy 98.9 ml/min; Est GFR (African American) 98.2 ml/min; Est GFR (Non-African American) 84.7 ml/min; Potassium 4.3 mmol/L (3.5-5.1)
[2023-08-29] MEDS: PLASMA-LYTE A 1,000 ML IV ONE (23:43)
[2023-08-30] MEDS: methylPREDNISolone 60 MG in SYRINGE 0 ML IV SCH (01:04)
[2023-08-30] MEDS ORDERED: fentaNYL BOLUS from BAG IV PRN (01:35)
[2023-08-30] MEDS ORDERED: STAT IV Infusion **Titration per Protocol STA (01:35)
[2023-08-30] MEDS: fentaNYL citrate 2,500 MCG/250 ML BAG IV SCH (01:57)
[2023-08-30] MEDS: PIPERACILLIN/TAZOBACTAM 4.5 GM in DEXTROSE 5% MINI-B 100 ML IV STA (02:02)
[2023-08-30] MEDS ORDERED: STAT IV/IM STA (02:21)
[2023-08-30] MEDS: diphenhydrAMINE 50 MG/ML VIAL IV SCH ×2 (03:23→10:48)
[2023-08-30] MEDS: SODIUM BICARBONATE 8.4% 150 MEQ in DEXTROSE 5% 1,000 ML IV SCH (03:23)
[2023-08-30 03:37] LABS: iSTAT Art Bld Gas pCO2 Correct 36 mmHg (35-46); iSTAT Art Bld Gas pH Corrected 7.315 (7.35-7.45); iSTAT Arterial Blood Gas HCO3 18 meg/L (19-24); iSTAT Arterial Blood Gas pCO2 34 mmHg (35-46); iSTAT Arterial Blood Gas pH 7.33 (7.35-7.45); iSTAT Arterial Blood Gas pO2 137 mmHg (80-95); iSTAT Arterial Blood Gas pO2 C 143; iSTAT Carbon Dioxide 19 mmol/L (24-31); iSTAT FiO2 30 %; iSTAT Hematocrit 35 % (42-52); iSTAT Hemoglobin 11.9 g/dl (14.0-18.0); iSTAT Potassium 3.7 mmol/L (3.3-5.0); iSTAT Site R Brachial; iSTAT Sodium 135 mmol/L (135-144)
[2023-08-30 05:21] LABS: Hematocrit (blood only) 38.3 % (42.0-52.0); Hemoglobin 12.7 g/dl (14.0-18.0); Mean Corpuscular Hemoglobin 28.7 pg (25.0-34.0); Mean Corpuscular Hgb Conc 33.2 g/dL (32.0-36.0); Mean Corpuscular Volume 86.5 fL (80.0-100.0); Mean Platelet Volume 11.7 fL (9.4-12.4); Platelet Count 267 K/uL (130-400); RDW Coefficient of Variation 12.1 % (11.5-14.5); RDW Standard Deviation 38.4 fL (36.4-46.3); Red Blood Count 4.43 M/uL (4.70-6.10); White Blood Count 18.57 K/ul (4.8-10.8)
[2023-08-30 05:27] LABS: BUN Creatinine Ratio 11.3 (10-20); Calcium 9.1 mg/dl (8.6-10.3); Creatinine Clr Calc Pharmacy 79.1 ml/min; Est GFR (Non-African American) 64.7 ml/min; Magnesium 1.9 mg/dl (1.7-2.4); Phosphorus 4.5 mg/dl (2.5-4.9); Potassium 4.3 mmol/L (3.5-5.1)
[2023-08-30 05:35] LABS: Basophils # (auto) 0.02 K/uL (0.00-0.20); Basophils % (auto) 0.1 %; Immature Granulocytes # (auto) 0.13 K/uL (0.01-0.20); Immature Granulocytes % (auto) 0.7 %; Lymphocytes # (auto) 0.85 K/uL (1.20-3.40); Lymphocytes % (auto) 4.6 %; Monocytes # (auto) 0.32 K/uL (0.11-0.59); Monocytes % (auto) 1.7 %; Neutrophils # (auto) 17.25 K/uL (1.40-6.50); Neutrophils % (auto) 92.9 %; RBC Morphology Unremarkable
[2023-08-30] MEDS: THIAMINE HCL 500 MG in SODIUM CHLORIDE 0.9% 50 ML IV STA (05:48)
[2023-08-30] MEDS: LACTULOSE SYRUP 30 GM/45 ML UDP PO STA ×2 (05:56→10:49)
[2023-08-30] MEDS: PIPERACILLIN/TAZOBACTAM 4.5 GM in DEXTROSE 5% MINI-B 100 ML IV SCH (06:16)
[2023-08-30] MEDS: MAGNESIUM SULFATE / D5W 1 GM/100 ML BAG IV ONE (06:16)
--- NOTE | 2023-08-30 06:31 | CT Scan Report ---
Exam(s): CT CHEST Without Contrast EXAM: CT Chest Without Intravenous Contrast CLINICAL HISTORY: Reason for exam: sepsis, Lactic acidosis. TECHNIQUE: Axial computed tomography images of the chest without intravenous contrast. Automated exposure control was utilized for the study. A dose lowering technique was utilized adhering to the principles of ALARA. COMPARISON: No relevant prior studies available. FINDINGS: Lungs: Unremarkable. No mass. No consolidation. Pleural space: Unremarkable. No pneumothorax. No significant effusion. Heart: Unremarkable. No cardiomegaly. No significant pericardial effusion. No significant coronary artery calcifications. Bones/joints: Unremarkable. No acute fracture. No dislocation. Soft tissues: Unremarkable. Vasculature: Unremarkable. No thoracic aortic aneurysm. Lymph nodes: Unremarkable. No enlarged lymph nodes. Tubes, lines and devices: Endotracheal tube tip is seen 9 mm from the killian. IMPRESSION: 1. No evidence of pneumonia 2. Low-lying endotracheal tube Electronically signed by: Dayday Brewer MD 08/30/23 06:30 AM
--- NOTE | 2023-08-30 06:34 | CT Scan Report ---
Exam(s): CT ABDOMEN + PELVIS Without Contrast EXAM: CT Abdomen and Pelvis Without Intravenous Contrast CLINICAL HISTORY: Reason for exam: sepsis, lactic acidosis. TECHNIQUE: Axial computed tomography images of the abdomen and pelvis without intravenous contrast. Automated exposure control was utilized for the study. A dose lowering technique was utilized adhering to the principles of ALARA. COMPARISON: No relevant prior studies available. FINDINGS: Lung bases: Unremarkable. No mass. No consolidation. ABDOMEN: Liver: Unremarkable. Gallbladder and bile ducts: Unremarkable. No calcified stones. No ductal dilation. Pancreas: Unremarkable. No ductal dilation. Spleen: Unremarkable. No splenomegaly. Adrenals: Unremarkable. No mass. Kidneys and ureters: Unremarkable. No obstructing stones. No hydronephrosis. Stomach and bowel: Unremarkable. No obstruction. No mucosal thickening. PELVIS: Appendix: No findings to suggest acute appendicitis. Bladder: Foleys catheter seen in the urinary bladder lumen. No stones. Reproductive: Unremarkable as visualized. ABDOMEN and PELVIS: Intraperitoneal space: Unremarkable. No free air. No significant fluid collection. Bones/joints: No acute fracture. No dislocation. Soft tissues: Unremarkable. Vasculature: Unremarkable. No abdominal aortic aneurysm. Lymph nodes: Unremarkable. No enlarged lymph nodes. IMPRESSION: No acute abdominal process identified Electronically signed by: Dayday Brewer MD 08/30/23 06:33 AM
--- NOTE | 2023-08-30 08:38 | Electrocardiogram Report ---
Test Reason : Blood Pressure : / mmHG Vent. Rate : 125 BPM Atrial Rate : 125 BPM P-R Int : 194 ms QRS Dur : 128 ms QT Int : 296 ms P-R-T Axes : 079 199 067 degrees QTc Int : 427 ms Sinus tachycardia Right bundle branch block Abnormal ECG No previous ECGs available Confirmed by Iglesia Wick ([id number]) on 08/30/2023 8:38:16 AM Referred By: REFERRED SELF Confirmed By:Iglesia Wick
--- NOTE | 2023-08-30 09:13 | XRay Report ---
XR chest 1V portable CLINICAL HISTORY: Resp failure TECHNIQUE: Single frontal radiograph of the chest was obtained. Comparison: Comparison is made to chest radiograph 08/29/2023 FINDINGS: Endotracheal tube terminates 3.9 cm from the killian. Enteric tube tip and side-port lie below the misty phragm. The cardiomediastinal silhouette is normal. The lungs are clear. No evidence of pleural effus ion or pneumothorax. IMPRESSION: No acute abnormalities and in particular no radiographic evidence of pneumonia. ACT 112: Negative or not required by law. Electronically signed by: Jose Manuel Adrian M.D. 08/30/2023 9:10 AM
--- NOTE | 2023-08-30 10:17 | Critical Care Progress Note ---
Date of Service August 30, 2023 Assessment & Plan (1) Acute respiratory failure with hypoxia and hypercapnia: Plan: Reason Critically Ill: 23-year-old male with past medical history of asthma and peanut/tree nut allergy presents to the ICU following anaphylactic reaction requiring epinephrine drip and intubation. Neuro - Sedation: Versed and fentanyl Cardiac - Currently hemodynamically stable, normotensive in sinus rhythm on monitor. -Off vasoactive's since approximately 830 Respiratory - Acute hypoxic and hypercapnic respiratory failuresecondary to anaphylactic reaction to peanuts/tree nuts. -Mild concern for possibility of anoxic injury given loss of consciousness prior to intubation -Encouragingly patient easily arousable following complex commands -Continue IV Solu-Medrol With regard to previously documented asthma, I am removing that diagnosis, this is more call center representative of the complex of anaphylaxis and type I hypersensitivity as opposed to true reactive airway disease. This can be further evaluated in the outpatient setting. GI - N.p.o. -Patient has likely consumed an allergen and I believe he is being reexposed as it passes through his gastrointestinal tract, I do not feel the need to engage whole bowel irrigation as the patient's condition has significantly improved, however I will give additional dose of lactulose to hopefully hasten the transient of the antigen through his gastrointestinal tract RENAL/LYTES - Elevated creatinine: No indication of acute kidney injury -Patient is a athletic young male, elevated creatinine is likely related to muscle mass - Discontinue Painting and engage condom cath if needed ENDO - No history of diabetes or thyroid disease. ICU hyperglycemic protocol HEME - H&H stable, monitor routine CBC ID - Discontinuation of anti-infectives at this time LINES/IV ACCESS - Peripheral IVs DVT PROPHYLAXIS - SCDs Had extensive discussion with the patient's mother at bedside. I am waiting for the patient's swelling to continue to decrease given the relapsing nature he is already experienced. We have discontinued the epinephrine my hope is that unless there is significant increase in swelling we can continue with the conservative treatments of Pepcid and Benadryl and steroids until the allergen passes through his system. Family acknowledged the patient has EpiPen's, discussed need to be in closer proximity to the patient. Advised follow-up with quantitative research analyst when he returns home. Patient is in the area with friends, likely to seek care outpatient follow-up outside of this immediate area. (2) Anaphylaxis: (3) Allergic reaction: Admission and Anticipated Discharge Date Admission Date: August 29, 2023 Supervising Physician Co-Signing Physician Notes I have personally spent 50 minutes of critical care time in the direct management of this patient. This is a life/limb threatening event. This includes time spent evaluating patient, direct bedside care, chart review, placing orders, interpretation of diagnostic studies, discussion with consultants, patient, and/or family members regarding treatment decisions, as well as other required patient management activities. This time is exclusive of all separately billable procedures, and teaching time and separate from and in addition to any other critical care service time. Subjective Overnight epinephrine infusion was discontinued staff felt there was worsening in patient's facial edema so epinephrine was reinstituted. Discussed with overnight team they were concerned regarding the lactic acid acidosis which prompted them to seek additional imaging, imaging reassuring. Obtained additional history from patient's mother who was present at bedside. She believes patient's initial allergen exposure occurred approximately at 18 months when he had a bite of a Snickers bar. He was given an epinephrine pen and never required utilizations until approximately at the age of 8 he consumed chicken which may have been exposed to a not process and there was then adminis tration of the EpiPen at that time for facial flushing and mild swelling. Again the patient went several years until most recently in May approximately 3 months ago he was in [place] and took a dessert which was later discovered to have knots in it. At that time the patient's face flushed he had mild swelling he was started on Benadryl which did not resolve the symptoms completely and he was administered 6 intramuscular epinephrine. Mother reports that he also has a allergy to feathers, at that time the after the administration of the epinephrine the patient went back to his room and took a nap, unbeknownst to him he was also laying on the down blanket which prompted a diffuse rash. Mother and girlfriend at bedside attest to the patient being rather restrictive/cautious in his diet to ensure there are no nut exposures. Patient does have EpiPen's however he has not always kept them in close proximity as was the case in this episode. Patient's girlfriend and mother both report there has been significant improvement in the patient's facial swelling since initial presentation. Patient was arousable to voice he was able to follow two-step complex commands shaking his head yes or no. Physical Exam Physical Exam: General: Sedated. nontoxic. Arouses to voice Skin: Warm, dry, Head: Atraumatic, mild periorbital edema and mild swelling of the upper lip, no significant urticaria, mild swelling of the hands diffusely. Ears, nose, mouth and throat: airway obscured by endotracheal tube Cardiovascular: Normal peripheral perfusion Respiratory: Ventilator settings reviewed Gastrointestinal: Non distended Musculoskeletal: No deformity Results & Data Results & Data Vital Signs (Past 12 Hours) Vital Signs Temp Pulse Resp BP Pulse Ox O2 Del Method FiO2 08/30/23 10:00 37.9 C H 94 H 12 97 08/30/23 10:00 115/55 L 08/30/23 09:45 37.9 C H 95 H 11 L 97 08/30/23 09:45 117/55 L 08/30/23 09:30 114/53 L 08/30/23 09:30 37.9 C H 97 H 12 97 08/30/23 09:15 109/50 L 08/30/23 09:15 37.9 C H 100 H 13 97 08/30/23 09:00 37.9 C H 104 H 14 98 08/30/23 09:00 120/52 L 08/30/23 08:45 111/47 L 08/30/23 08:45 37.9 C H 106 H 15 98 08/30/23 08:30 112/44 L 08/30/23 08:30 37.9 C H 105 H 14 98 08/30/23 08:15 37.9 C H 109 H 20 98 08/30/23 08:15 115/43 L 08/30/23 08:00 114/43 L 08/30/23 08:00 37.9 C H 110 H 20 98 08/30/23 08:00 Mechanical Vent 08/30/23 08:00 30 08/30/23 08:00 108 H 08/30/23 07:45 113/41 L 08/30/23 07:45 37.9 C H 112 H 20 98 08/30/23 07:32 108 H 20 98 30 08/30/23 07:30 37.8 C H 123 H 18 100 08/30/23 07:30 121/45 L 08/30/23 07:27 30 08/30/23 07:15 113/46 L 08/30/23 07:15 37.8 C H 115 H 20 99 08/30/23 07:00 108/41 L 08/30/23 07:00 37.9 C H 107 H 20 98 08/30/23 06:45 112/41 L 08/30/23 06:45 37.9 C H 108 H 20 98 08/30/23 06:30 124/48 L 08/30/23 06:30 37.8 C H 110 H 20 98 08/30/23 06:15 112/44 L 08/30/23 06:15 37.8 C H 107 H 20 98 08/30/23 06:00 37.8 C H 106 H 20 98 08/30/23 06:00 116/43 L 08/30/23 05:45 37.8 C H 106 H 20 98 08/30/23 05:45 114/46 L 08/30/23 05:30 102/42 L 08/30/23 05:30 37.8 C H 101 H 20 98 08/30/23 05:15 107/43 L 08/30/23 05:15 37.8 C H 102 H 20 98 08/30/23 05:00 37.7 C H 110 H 20 99 08/30/23 05:00 130/55 L 08/30/23 04:45 108/45 L 08/30/23 04:45 37.8 C H 104 H 20 98 08/30/23 04:30 104/45 L 08/30/23 04:30 37.9 C H 103 H 20 98 08/30/23 04:15 105/46 L 08/30/23 04:15 37.9 C H 101 H 20 98 08/30/23 04:04 110/47 L 08/30/23 04:04 37.9 C H 103 H 17 98 08/30/23 04:00 37.9 C H 103 H 20 98 08/30/23 04:00 30 08/30/23 03:14 101/42 L 08/30/23 03:14 37.9 C H 106 H 8 L 08/30/23 03:10 98 08/30/23 02:45 111 H 20 98 30 08/30/23 02:30 37.7 C H 106 H 20 100 08/30/23 02:30 107/49 L 08/30/23 02:15 37.6 C H 107 H 20 98 08/30/23 02:15 103/47 L 08/30/23 02:00 98/42 L 08/30/23 02:00 37.5 C 108 H 20 98 30 08/30/23 01:45 90/41 L 08/30/23 01:45 37.5 C 107 H 20 98 08/30/23 01:30 37.4 C 106 H 20 98 08/30/23 01:30 91/44 L 08/30/23 01:15 93/40 L 08/30/23 01:15 37.3 C 106 H 20 99 08/30/23 01:00 37.3 C 108 H 20 99 30 08/30/23 01:00 88/40 L 08/30/23 00:45 37.2 C 108 H 20 100 08/30/23 00:45 89/38 L 08/30/23 00:30 110/52 L 08/30/23 00:30 37.1 C 108 H 20 100 08/30/23 00:15 105/48 L 08/30/23 00:15 37.0 C 108 H 20 100 08/30/23 00:00 36.9 C 108 H 20 100 30 08/30/23 00:00 101/43 L 08/30/23 00:00 30 08/30/23 00:00 102 H 08/29/23 23:45 106/65 08/29/23 23:45 36.8 C 105 H 20 100 08/29/23 23:30 93/50 L 08/29/23 23:30 36.8 C 103 H 20 100 08/29/23 23:15 95/48 L 08/29/23 23:15 36.7 C 103 H 20 100 08/29/23 23:00 96/48 L 08/29/23 23:00 36.6 C 103 H 20 99 08/29/23 22:45 86/48 L 08/29/23 22:45 36.6 C 107 H 20 98 08/29/23 22:30 88/43 L 08/29/23 22:30 36.6 C 108 H 20 98 08/29/23 22:15 83/41 L 08/29/23 22:15 36.4 C L 107 H 20 99 08/29/23 22:11 106 H 20 100 30 Critical Care Results & Data Vital Signs (Past 12 Hours) Vital Signs Temp Pulse Resp BP Pulse Ox O2 Del Method FiO2 08/30/23 10:00 37.9 C H 94 H 12 97 08/30/23 10:00 115/55 L 08/30/23 09:45 37.9 C H 95 H 11 L 97 08/30/23 09:45 117/55 L 08/30/23 09:30 114/53 L 08/30/23 09:30 37.9 C H 97 H 12 97 08/30/23 09:15 109/50 L 08/30/23 09:15 37.9 C H 100 H 13 97 08/30/23 09:00 37.9 C H 104 H 14 98 08/30/23 09:00 120/52 L 08/30/23 08:45 111/47 L 08/30/23 08:45 37.9 C H 106 H 15 98 08/30/23 08:30 112/44 L 08/30/23 08:30 37.9 C H 105 H 14 98 08/30/23 08:15 37.9 C H 109 H 20 98 08/30/23 08:15 115/43 L 08/30/23 08:00 114/43 L 08/30/23 08:00 37.9 C H 110 H 20 98 08/30/23 08:00 Mechanical Vent 08/30/23 08:00 30 08/30/23 08:00 108 H 08/30/23 07:45 113/41 L 08/30/23 07:45 37.9 C H 112 H 20 98 08/30/23 07:32 108 H 20 98 30 08/30/23 07:30 37.8 C H 123 H 18 100 08/30/23 07:30 121/45 L 08/30/23 07:27 30 08/30/23 07:15 113/46 L 08/30/23 07:15 37.8 C H 115 H 20 99 08/30/23 07:00 108/41 L 08/30/23 07:00 37.9 C H 107 H 20 98 08/30/23 06:45 112/41 L 08/30/23 06:45 37.9 C H 108 H 20 98 08/30/23 06:30 124/48 L 08/30/23 06:30 37.8 C H 110 H 20 98 08/30/23 06:15 112/44 L 08/30/23 06:15 37.8 C H 107 H 20 98 08/30/23 06:00 37.8 C H 106 H 20 98 08/30/23 06:00 116/43 L 08/30/23 05:45 37.8 C H 106 H 20 98 08/30/23 05:45 114/46 L 08/30/23 05:30 102/42 L 08/30/23 05:30 37.8 C H 101 H 20 98 08/30/23 05:15 107/43 L 08/30/23 05:15 37.8 C H 102 H 20 98 08/30/23 05:00 37.7 C H 110 H 20 99 08/30/23 05:00 130/55 L 08/30/23 04:45 108/45 L 08/30/23 04:45 37.8 C H 104 H 20 98 08/30/23 04:30 104/45 L 08/30/23 04:30 37.9 C H 103 H 20 98 08/30/23 04:15 105/46 L 08/30/23 04:15 37.9 C H 101 H 20 98 08/30/23 04:04 110/47 L 08/30/23 04:04 37.9 C H 103 H 17 98 08/30/23 04:00 37.9 C H 103 H 20 98 08/30/23 04:00 30 08/30/23 03:14 101/42 L 08/30/23 03:14 37.9 C H 106 H 8 L 08/30/23 03:10 98 08/30/23 02:45 111 H 20 98 30 08/30/23 02:30 37.7 C H 106 H 20 100 08/30/23 02:30 107/49 L 08/30/23 02:15 37.6 C H 107 H 20 98 08/30/23 02:15 103/47 L 08/30/23 02:00 98/42 L 08/30/23 02:00 37.5 C 108 H 20 98 08/30/23 01:45 90/41 L 08/30/23 01:45 37.5 C 107 H 20 98 08/30/23 01:30 37.4 C 106 H 20 98 08/30/23 01:30 91/44 L 08/30/23 01:15 93/40 L 08/30/23 01:15 37.3 C 106 H 20 99 08/30/23 01:00 37.3 C 108 H 20 99 30 08/30/23 01:00 88/40 L 08/30/23 00:45 37.2 C 108 H 20 100 08/30/23 00:45 89/38 L 08/30/23 00:30 110/52 L 08/30/23 00:30 37.1 C 108 H 20 100 08/30/23 00:15 105/48 L 08/30/23 00:15 37.0 C 108 H 20 100 08/30/23 00:00 36.9 C 108 H 20 100 30 08/30/23 00:00 101/43 L 08/30/23 00:00 30 08/30/23 00:00 102 H 08/29/23 23:45 106/65 08/29/23 23:45 36.8 C 105 H 20 100 08/29/23 23:30 93/50 L 08/29/23 23:30 36.8 C 103 H 20 100 08/29/23 23:15 95/48 L 08/29/23 23:15 36.7 C 103 H 20 100 08/29/23 23:00 96/48 L 08/29/23 23:00 36.6 C 103 H 20 99 08/29/23 22:45 86/48 L 08/29/23 22:45 36.6 C 107 H 20 98 08/29/23 22:30 88/43 L 08/29/23 22:30 36.6 C 108 H 20 98 08/29/23 22:15 83/41 L 08/29/23 22:15 36.4 C L 107 H 20 99 Lab & Micro Results (Past 24 Hours) RBC 4.43 M/uL (4.70-6.10) L 08/30/23 WBC 18.57 K/ul (4.8-10.8) H 08/30/23 Hgb 12.7 g/dl (14.0-18.0) L 08/30/23 Hct 38.3 % (42.0-52.0) L 08/30/23 MCV 86.5 fL (80.0-100.0) 08/30/23 MCH 28.7 pg (25.0-34.0) 08/30/23 MCHC 33.2 g/dL (32.0-36.0) 08/30/23 RDW Standard Deviation 38.4 fL (36.4-46.3) 08/30/23 RDW Coefficient of Variation 12.1 % (11.5-14.5) 08/30/23 Plt Count 267 K/uL (130-400) 08/30/23 MPV 11.7 fL (9.4-12.4) 08/30/23 Neutrophils (%) (Auto) 92.9 % 08/30/23 Lymphocytes (%) (Auto) 4.6 % 08/30/23 Monocytes # (Auto) 0.32 K/uL (0.11-0.59) 08/30/23 Eosinophils # (Auto) 0.00 K/uL (0.00-0.50) 08/30/23 Immature Granulocyte % (Auto) 0.7 % 08/30/23 Neutrophils # (Auto) 17.25 K/uL (1.40-6.50) H 08/30/23 Lymphocytes # (Auto) 0.85 K/uL (1.20-3.40) L 08/30/23 Monocytes # (Auto) 0.32 K/uL (0.11-0.59) 08/30/23 Eosinophils # (Auto) 0.00 K/uL (0.00-0.50) 08/30/23 Basophils # (Auto) 0.02 K/uL (0.00-0.20) 08/30/23 Immature Granulocyte # (Auto) 0.13 K/uL (0.01-0.20) 4 Red Blood Cell Morphology Unremarkable 08/30/23 Na 137 mmol/L (136-145) 08/30/23 K 4.3 mmol/L (3.5-5.1) 08/30/23 Cl 102 mmol/L (98-107) 08/30/23 CO2 18 mmol/L (21-32) L 08/30/23 Anion Gap 17 (3-11) H 08/30/23 BUN 17 mg/dl (6-23) 08/30/23 Creatinine 1.50 mg/dl (0.6-1.4) H 08/30/23 Estimated GFR ( Amer) 75.0 ml/min 08/30/23 Estimated GFR (Non-Af Amer) 64.7 ml/min 08/30/23 BUN/Creatinine Ratio 11.3 (10-20) 08/30/23 Glu 196 mg/dl (70-99(Fasting)) H 08/30/23 Ca 9.1 mg/dl (8.6-10.3) 08/30/23 Phosphorus Level 4.5 mg/dl (2.5-4.9) 08/30/23 Total Bilirubin 0.5 mg/dl (0.2-1.0) 08/29/23 AST 28 U/L (13-39) 08/29/23 ALT 15 U/L (7-52) 08/29/23 Alkaline Phosphatase 62 U/L (34-104) 08/29/23 TP 7.4 gm/dl (6.0-8.3) 08/29/23 Albumin 4.6 gm/dl (3.4-5.0) 08/29/23 Globulin 2.8 gm/dl (2.5-4.0) 08/29/23 Albumin/Globulin Ratio 1.6 (0.9-2) 08/29/23 Mg 1.9 mg/dl (1.7-2.4) 08/30/23 04:52 Calcium Level 9.1 mg/dl (8.6-10.3) 08/30/23 04:52 Tobin Test NA 08/30/23 02:28 Diagnostic Findings (Past 24 Hours) Chest X-Ray 08/29/23 18:03 SUPINE PORTABLE AP CHEST RADIOGRAPHS CLINICAL HISTORY: Respiratory arrest. COMPARISON STUDY: No previous studies for comparison. FINDINGS: The endotracheal tube was advanced following the first chest radiograph. On the final image, the tip of the endotracheal tube is 5.1 cm above the killian. There is no pneumothorax or pleural effusion on supine exam. No airspace opacities are present. Pulmonary vascularity is normal. Cardiomediastinal silhouette is unremarkable. IMPRESSION: 1. Appropriately positioned endotracheal tube. 2. No acute cardiopulmonary findings. ACT 112: Negative or not required by law. Electronically signed by: Mor Sinlgeton M.D. 08/29/2023 6:25 PM Abdomen/Pelvis CT 08/30/23 02:19 Exam(s): CT ABDOMEN + PELVIS Without Contrast EXAM: CT Abdomen and Pelvis Without Intravenous Contrast CLINICAL HISTORY: Reason for exam: sepsis, lactic acidosis. TECHNIQUE: Axial computed tomography images of the abdomen and pelvis without intravenous contrast. Automated exposure control was utilized for the study. A dose lowering technique was utilized adhering to the principles of ALARA. COMPARISON: No relevant prior studies available. FINDINGS: Lung bases: Unremarkable. No mass. No consolidation. ABDOMEN: Liver: Unremarkable. Gallbladder and bile ducts: Unremarkable. No calcified stones. No ductal dilation. Pancreas: Unremarkable. No ductal dilation. Spleen: Unremarkable. No splenomegaly. Adrenals: Unremarkable. No mass. Kidneys and ureters: Unremarkable. No obstructing stones. No hydronephrosis. Stomach and bowel: Unremarkable. No obstruction. No mucosal thickening. PELVIS: Appendix: No findings to suggest acute appendicitis. Bladder: Foleys catheter seen in the urinary bladder lumen. No stones. Reproductive: Unremarkable as visualized. ABDOMEN and PELVIS: Intraperitoneal space: Unremarkable. No free air. No significant fluid collection. Bones/joints: No acute fracture. No dislocation. Soft tissues: Unremarkable. Vasculature: Unremarkable. No abdominal aortic aneurysm. Lymph nodes: Unremarkable. No enlarged lymph nodes. IMPRESSION: No acute abdominal process identified Electronically signed by: Dayday Brewer MD 08/30/23 06:[address] 08/30/23 02:19 Exam(s): CT CHEST Without Contrast EXAM: CT Chest Without Intravenous Contrast CLINICAL HISTORY: Reason for exam: sepsis, Lactic acidosis. TECHNIQUE: Axial computed tomography images of the chest without intravenous contrast. Automated exposure control was utilized for the study. A dose lowering technique was utilized adhering to the principles of ALARA. COMPARISON: No relevant prior studies available. FINDINGS: Lungs: Unremarkable. No mass. No consolidation. Pleural space: Unremarkable. No pneumothorax. No significant effusion. Heart: Unremarkable. No cardiomegaly. No significant pericardial effusion. No significant coronary artery calcifications. Bones/joints: Unremarkable. No acute fracture. No dislocation. Soft tissues: Unremarkable. Vasculature: Unremarkable. No thoracic aortic aneurysm. Lymph nodes: Unremarkable. No enlarged lymph nodes. Tubes, lines and devices: Endotracheal tube tip is seen 9 mm from the killian. IMPRESSION: 1. No evidence of pneumonia 2. Low-lying endotracheal tube Electronically signed by: Dayday Brewer MD 08/30/23 06:30 AM Chest X-Ray 08/30/23 07:00 XR chest 1V portable CLINICAL HISTORY: Resp failure TECHNIQUE: Single frontal radiograph of the chest was obtained. Comparison: Comparison is made to chest radiograph 08/29/2023 FINDINGS: Endotracheal tube terminates 3.9 cm from the killian. Enteric tube tip and side- port lie below the diaphragm. The cardiomediastinal silhouette is normal. The lungs are clear. No evidence of pleural effusion or pneumothorax. IMPRESSION: No acute abnormalities and in particular no radiographic evidence of pneumonia. ACT 112: Negative or not required by law. Electronically signed by: Jose Manuel Adrian M.D. 08/30/2023 9:10 AM I & O Totals 24 Hours 08/29/23 08/30/23 08/31/23 06:59 06:59 06:59 Intake Total 3512.106 / 3535.439 894.346 / 894.346 Output Total 575 / 575 200 / 200 Balance 2937.106 / 2960.439 694.346 / 694.346 Cumulative 08/29/23 17:53 thru 08/30/23 10:06 Intake Total 4406.452 Output Total 775 Balance 3631.452 RT Ventilator Mngmt (Last Documented) Ventilator Ordered Settings Ventilator Support Mode Assist Control 08/30/23 08:00 Respiratory Rate 12 08/30/23 10:00 Ventilator Tidal Volume 500 08/30/23 08:00 Setting Minute Ventilation 10.0 08/30/23 07:32 Positive End Expiratory 5 08/30/23 08:00 Pressure Fraction of Inspired Oxygen 30 08/30/23 08:00 Ventilator - PT Measurements Respiratory Rate 12 Exhaled Tidal Volume 500 Minute Ventilation 10.0 Peak Inspiratory Airway 14 Pressure Plateau Pressure 11.5 Respiratory Cycle Inspiratory: 1:3.0 Expiratory Ratio Inspiratory Phase Time 0.75 End-Tidal CO2 50 Static Lung Compliance 76.92 Dynamic Lung Compliance 55.56 Normal Static Lung Compliance 49.00 Coding Level of Care Code 89147 CRITICAL CARE 1ST 30-74M Diagnoses Acute respiratory failure with hypoxia and hypercapnia J96.01; J96.02 Anaphylaxis T78.2XXA Encounter type: initial encounter Allergic reaction T78.40XA Encounter type: initial encounter (2) Anaphylaxis Encounter type: initial encounter Qualified Code(s): T78.2XXA - Anaphylactic shock, unspecified, initial encounter (3) Allergic reaction Encounter type: initial encounter Qualified Code(s): T78.40XA - Allergy, unspecified, initial encounter
--- NOTE | 2023-08-30 10:45 | Hospitalist Progress Note ---
Date of Service August 30, 2023 Assessment & Plan (1) Anaphylaxis: Plan: Severe anaphylaxis from peanut allergy requiring intravenous epinephrine drip and intubation. Currently on Solu-Medrol, diphenhydramine, epinephrine intravenously. Critical care management until extubated (2) Acute respiratory failure with hypoxia and hypercapnia: Plan: Ventilator support. Wean as tolerated. (3) Acute respiratory acidosis: Plan: Initial POC ABG after intubation with pH 6.974, PaCO2 110. Resolved with respiratory ventilator support Plan Anticipate eventual discharge to home after extubation and stabilized Admission and Anticipated Discharge Date Admission Date: August 29, 2023 Subjective Semiconscious on ventilator support. Sedated. No acute distress Review of Systems 2 Review of Systems: The patient is intubated and unable to answer any questions regarding review of systems at this time Physical Exam 2 Physical Exam: General-sedated, semiconscious, intubated HEENT-head atraumatic and normocephalic, endotracheal tube in place Neck-no lymphadenopathy or thyromegaly, trachea midline Chest-clear to auscultation anteriorly. No rales, wheezing or rhonchi Cardiac-regular rate and rhythm, normal S1 and S2 Abdomen-normal bowel sounds, nontender, no hepatosplenomegaly Extremities-no cyanosis, clubbing, or edema Neuro-cannot evaluate due to sedated/intubated status Psych-cannot evaluate due to intubated/sedated status Results & Data Results & Data Vital Signs (Past 12 Hours) Vital Signs Temp Pulse Resp BP Pulse Ox O2 Del Method FiO2 08/30/23 10:00 37.9 C H 94 H 12 97 08/30/23 10:00 115/55 L 08/30/23 09:45 37.9 C H 95 H 11 L 97 08/30/23 09:45 117/55 L 08/30/23 09:30 114/53 L 08/30/23 09:30 37.9 C H 97 H 12 97 08/30/23 09:15 109/50 L 08/30/23 09:15 37.9 C H 100 H 13 97 08/30/23 09:00 37.9 C H 104 H 14 98 08/30/23 09:00 120/52 L 08/30/23 08:45 111/47 L 08/30/23 08:45 37.9 C H 106 H 15 98 08/30/23 08:30 112/44 L 08/30/23 08:30 37.9 C H 105 H 14 98 08/30/23 08:15 37.9 C H 109 H 20 98 08/30/23 08:15 115/43 L 08/30/23 08:00 114/43 L 08/30/23 08:00 37.9 C H 110 H 20 98 08/30/23 08:00 Mechanical Vent 08/30/23 08:00 30 08/30/23 08:00 108 H 08/30/23 07:45 113/41 L 08/30/23 07:45 37.9 C H 112 H 20 98 08/30/23 07:32 108 H 20 98 30 08/30/23 07:30 37.8 C H 123 H 18 100 08/30/23 07:30 121/45 L 08/30/23 07:27 30 08/30/23 07:15 113/46 L 08/30/23 07:15 37.8 C H 115 H 20 99 08/30/23 07:00 108/41 L 08/30/23 07:00 37.9 C H 107 H 20 98 08/30/23 06:45 112/41 L 08/30/23 06:45 37.9 C H 108 H 20 98 08/30/23 06:30 124/48 L 08/30/23 06:30 37.8 C H 110 H 20 98 08/30/23 06:15 112/44 L 08/30/23 06:15 37.8 C H 107 H 20 98 08/30/23 06:00 37.8 C H 106 H 20 98 08/30/23 06:00 116/43 L 08/30/23 05:45 37.8 C H 106 H 20 98 08/30/23 05:45 114/46 L 08/30/23 05:30 102/42 L 08/30/23 05:30 37.8 C H 101 H 20 98 08/30/23 05:15 107/43 L 08/30/23 05:15 37.8 C H 102 H 20 98 08/30/23 05:00 37.7 C H 110 H 20 99 08/30/23 05:00 130/55 L 08/30/23 04:45 108/45 L 08/30/23 04:45 37.8 C H 104 H 20 98 08/30/23 04:30 104/45 L 08/30/23 04:30 37.9 C H 103 H 20 98 08/30/23 04:15 105/46 L 08/30/23 04:15 37.9 C H 101 H 20 98 08/30/23 04:04 110/47 L 08/30/23 04:04 37.9 C H 103 H 17 98 08/30/23 04:00 37.9 C H 103 H 20 98 08/30/23 04:00 30 08/30/23 03:14 101/42 L 08/30/23 03:14 37.9 C H 106 H 8 L 08/30/23 03:10 98 08/30/23 02:45 111 H 20 98 08/30/23 02:30 37.7 C H 106 H 20 100 08/30/23 02:30 107/49 L 08/30/23 02:15 37.6 C H 107 H 20 98 08/30/23 02:15 103/47 L 08/30/23 02:00 98/42 L 08/30/23 02:00 37.5 C 108 H 20 98 08/30/23 01:45 90/41 L 08/30/23 01:45 37.5 C 107 H 20 98 08/30/23 01:30 37.4 C 106 H 20 98 08/30/23 01:30 91/44 L 08/30/23 01:15 93/40 L 08/30/23 01:15 37.3 C 106 H 20 99 08/30/23 01:00 37.3 C 108 H 20 99 30 08/30/23 01:00 88/40 L 08/30/23 00:45 37.2 C 108 H 20 100 08/30/23 00:45 89/38 L 08/30/23 00:30 110/52 L 08/30/23 00:30 37.1 C 108 H 20 100 08/30/23 00:15 105/48 L 08/30/23 00:15 37.0 C 108 H 20 100 08/30/23 00:00 36.9 C 108 H 20 100 08/30/23 00:00 101/43 L 08/30/23 00:00 30 08/30/23 00:00 102 H 08/29/23 23:45 106/65 08/29/23 23:45 36.8 C 105 H 20 100 08/29/23 23:30 93/50 L 08/29/23 23:30 36.8 C 103 H 20 100 08/29/23 23:15 95/48 L 08/29/23 23:15 36.7 C 103 H 20 100 08/29/23 23:00 96/48 L 08/29/23 23:00 36.6 C 103 H 20 99 08/29/23 22:45 86/48 L 08/29/23 22:45 36.6 C 107 H 20 98 Laboratory Results 08/30/23 04:52 08/30/23 04:52 PG Care Time/CCT Total # of Minutes Spent Total Time Spent with Patient: Total time spent is greater than 50% in coordination of care (as documented) at patient's floor/unit and/or counseling patient: Coding Level of Care Code 93773 SUB INP/OBS CARE 3/50MIN Diagnoses Anaphylaxis T78.2XXA Encounter type: initial encounter Acute respiratory failure with hypoxia and hypercapnia J96.01; J96.02 Acute respiratory acidosis J96.02 (1) Anaphylaxis Encounter type: initial encounter Qualified Code(s): T78.2XXA - Anaphylactic shock, unspecified, initial encounter
[2023-08-30] MEDS: FAMOTIDINE 20MG IV PUSH 20 MG/5 ML SYR IV SCH (10:49)
[2023-08-30] MEDS ORDERED: methylPREDNISolone 60 MG in SYRINGE 0 ML IV SCH (21:00)
[2023-08-31 04:50] LABS: Basophils # (auto) 0.02 K/uL (0.00-0.20); Basophils % (auto) 0.1 %; Hematocrit (blood only) 33.1 % (42.0-52.0); Hemoglobin 11.3 g/dl (14.0-18.0); Immature Granulocytes # (auto) 0.08 K/uL (0.01-0.20); Immature Granulocytes % (auto) 0.5 %; Lymphocytes # (auto) 0.71 K/uL (1.20-3.40); Lymphocytes % (auto) 4.8 %; Mean Corpuscular Hemoglobin 29.7 pg (25.0-34.0); Mean Corpuscular Hgb Conc 34.1 g/dL (32.0-36.0); Mean Corpuscular Volume 86.9 fL (80.0-100.0); Mean Platelet Volume 12.4 fL (9.4-12.4); Monocytes # (auto) 0.93 K/uL (0.11-0.59); Monocytes % (auto) 6.3 %; Neutrophils # (auto) 13.14 K/uL (1.40-6.50); Neutrophils % (auto) 88.3 %; Platelet Count 196 K/uL (130-400); RDW Coefficient of Variation 12.5 % (11.5-14.5); RDW Standard Deviation 39.7 fL (36.4-46.3); Red Blood Count 3.81 M/uL (4.70-6.10); White Blood Count 14.88 K/ul (4.8-10.8)
[2023-08-31 05:11] LABS: BUN Creatinine Ratio 22.1 (10-20); Calcium 9.2 mg/dl (8.6-10.3); Creatinine Clr Calc Pharmacy 114.1 ml/min; Est GFR (African American) 116.7 ml/min; Est GFR (Non-African American) 100.7 ml/min; Magnesium 2.1 mg/dl (1.7-2.4); Phosphorus 2.7 mg/dl (2.5-4.9); Potassium 3.7 mmol/L (3.5-5.1)
--- NOTE | 2023-08-31 07:48 | Critical Care Progress Note ---
Date of Service August 31, 2023 Assessment & Plan (1) Acute respiratory failure with hypoxia and hypercapnia: (2) Acute respiratory acidosis: (3) Anaphylaxis: (4) Allergic reaction: Plan Reason Critically Ill: 23-year-old male with past medical history of asthma and peanut/tree nut allergy presents to the ICU following anaphylactic reaction requiring epinephrine drip and intubation. Neuro - Sedation: Versed and fentanyl Cardiac - Currently hemodynamically stable, normotensive in sinus rhythm on monitor. Respiratory - Acute hypoxic and hypercapnic respiratory failuresecondary to anaphylactic reaction to peanuts/tree nuts. -Continue IV Solu-Medrol GI - N.p.o. -Patient has likely consumed an allergen and I believe he is being reexposed as it passes through his gastrointestinal tract RENAL/LYTES - Elevated creatinine: No indication of acute kidney injury -Patient is a athletic young male, elevated creatinine is likely related to muscle mass - Discontinue Painting and engage condom cath if needed ENDO - No history of diabetes or thyroid disease. ICU hyperglycemic protocol HEME - H&H stable, monitor routine CBC ID - Discontinuation of anti-infectives at this time --Prophylaxis VTE: IPC GI: Pepcid Lines: Peripheral Diet: N.p.o. Plan: In/out: -909, urine output 2.2 L, +2 L since coming to the hospital ABG 7.33/34/137 on 30% Will try to turn the sedation off and give trial of extubation. Epinephrine has been off since 08/30/2023 8:30 AM. Decrease the dose of Solu-Medrol to 40 mg twice daily Continue with antihistamine, decrease the frequency to q. 8. EKG to look at the QTc All questions and queries of the patient's mother was at bedside were answered in depth. I have personally spent 38 minutes of critical care time in the direct management of this patient. This is a life/limb threatening event. This includes time spent evaluating patient, direct bedside care, chart review, placing orders, interpretation of diagnostic studies, discussion with consultants, patient, and family members, as well as other required patient management activities. This time is exclusive of all separately billable procedures, and teaching time and separate from and in addition to any other critical care service time. Please note the above document was generated using voice recognition software. It may contain grammatical, syntax or spelling errors. Admission and Anticipated Discharge Date Admission Date: August 29, 2023 Subjective Patient seen and examined at bedside. No acute distress, notable symptoms overnight He was on midazolam 5.5 and fentanyl 125 at time of examination He was RASS -1, moving all extremities, following commands. Denied any headache, no chest pain, no abdominal pain. Patient's mother was also in the room and was anxious. Review of Systems 2 Review of Systems: All systems reviewed & are unremarkable except as noted in Subjective Physical Exam 2 Physical Exam: Constitutional: No acute distress HEENT: EOMI, PERRLA, minimal swelling of upper and lower lips, no tongue swelling Respiratory system: Good air entry bilaterally, no wheeze, no rhonchi, no crackles CVS: S1-S2 positive, no murmurs or gallops Abdomen: Soft, nontender, nondistended, positive bowel sounds x4 Extremities: +2 pulses bilaterally radialis/ dorsalis pedis, no cyanosis, no edema Neuro: RASS -1, moving all extremities appropriately Psych: Normal mood and affect G/U: Positive Painting Skin: no rashes, warm and dry Lymphatic: no cervical or axillary lymphadenopathy Results & Data Results & Data Vital Signs (Past 12 Hours) Vital Signs Temp Pulse Pulse Resp BP Pulse Ox O2 Del Method 08/31/23 06:00 122/59 L 08/31/23 06:00 37.2 C 69 20 97 08/31/23 05:30 114/56 L 08/31/23 05:30 37.2 C 66 20 97 08/31/23 05:00 37.3 C 68 20 97 08/31/23 05:00 118/57 L 08/31/23 04:30 115/58 L 08/31/23 04:30 37.3 C 71 20 97 08/31/23 04:00 110/55 L 08/31/23 04:00 37.2 C 67 20 97 08/31/23 03:48 08/31/23 03:30 115/54 L 08/31/23 03:30 37.2 C 67 20 98 08/31/23 03:00 120/55 L 08/31/23 03:00 37.2 C 74 20 97 08/31/23 02:30 115/52 L 08/31/23 02:30 37.2 C 82 20 98 08/31/23 02:05 76 20 99 03/25/24 02:05 75 20 99 Mechanical Vent 08/31/23 02:00 113/58 L 08/31/23 02:00 37.2 C 69 20 98 08/31/23 01:30 117/59 L 08/31/23 01:30 37.2 C 66 20 98 08/31/23 01:00 120/58 L 08/31/23 01:00 37.2 C 68 20 97 08/31/23 00:30 118/58 L 08/31/23 00:30 37.2 C 68 20 98 08/31/23 00:00 117/58 L 08/31/23 00:00 37.2 C 69 20 98 08/30/23 23:55 08/30/23 23:55 72 08/30/23 23:30 116/56 L 08/30/23 23:30 37.2 C 70 20 98 08/30/23 23:20 22 08/30/23 23:00 37.1 C 71 20 98 08/30/23 23:00 104/51 L 08/30/23 22:30 114/58 L 08/30/23 22:30 37.1 C 75 20 98 08/30/23 22:00 118/56 L 08/30/23 22:00 37.1 C 79 20 98 08/30/23 21:30 37.1 C 75 20 98 08/30/23 21:30 99/45 L 08/30/23 21:24 65 20 99 08/30/23 21:00 37.1 C 66 20 98 08/30/23 21:00 119/64 08/30/23 20:30 111/59 L 08/30/23 20:30 37.1 C 65 20 98 08/30/23 20:00 122/62 08/30/23 20:00 37.1 C 66 20 98 08/30/23 20:00 FiO2 08/31/23 06:00 08/31/23 06:00 08/31/23 05:30 08/31/23 05:30 08/31/23 05:00 08/31/23 05:00 08/31/23 04:30 08/31/23 04:30 08/31/23 04:00 08/31/23 04:00 08/31/23 03:48 30 08/31/23 03:30 08/31/23 03:30 08/31/23 03:00 08/31/23 03:00 08/31/23 02:30 08/31/23 02:30 08/31/23 02:05 30 08/31/23 02:05 30 08/31/23 02:00 08/31/23 02:00 08/31/23 01:30 08/31/23 01:30 08/31/23 01:00 08/31/23 01:00 08/31/23 00:30 08/31/23 00:30 08/31/23 00:00 08/31/23 00:00 08/30/23 23:55 30 08/30/23 23:55 08/30/23 23:30 08/30/23 23:30 08/30/23 23:20 30 08/30/23 23:00 30 08/30/23 23:00 08/30/23 22:30 08/30/23 22:30 08/30/23 22:00 08/30/23 22:00 30 08/30/23 21:30 08/30/23 21:30 08/30/23 21:24 30 08/30/23 21:00 08/30/23 21:00 30 08/30/23 20:30 08/30/23 20:30 08/30/23 20:00 08/30/23 20:00 30 08/30/23 20:00 30 Laboratory Results 08/31/23 03:56 08/31/23 03:56 Coding Level of Care Code 15137 CRITICAL CARE 1ST 30-74M Diagnoses Acute respiratory failure with hypoxia and hypercapnia J96.01; J96.02 Acute respiratory acidosis J96.02 Anaphylaxis T78.2XXA Encounter type: initial encounter Allergic reaction T78.40XA Encounter type: initial encounter Time Spent (min) 38 (3) Anaphylaxis Encounter type: initial encounter Qualified Code(s): T78.2XXA - Anaphylactic shock, unspecified, initial encounter (4) Allergic reaction Encounter type: initial encounter Qualified Code(s): T78.40XA - Allergy, unspecified, initial encounter
[2023-08-31] MEDS ORDERED: ALBUT/IPRATROP 3MG/0.5MG NEB 3 ML VIAL NEB PRN (09:44)
[2023-08-31 09:47] LABS: iSTAT Arterial Blood Gas HCO3 26 meg/L (19-24); iSTAT Arterial Blood Gas pCO2 111 mmHg (35-46); iSTAT Arterial Blood Gas pH 6.97 (7.35-7.45); iSTAT Arterial Blood Gas pO2 200 mmHg (80-95); iSTAT Carbon Dioxide 29 mmol/L (24-31); iSTAT Hematocrit 46 % (42-52); iSTAT Hemoglobin 15.6 g/dl (14.0-18.0); iSTAT Potassium 3.2 mmol/L (3.3-5.0); iSTAT Sodium 141 mmol/L (135-144)
[2023-08-31] MEDS: POTASSIUM CHLORIDE CRTAB 20 MEQ TABCR PO STA (11:53)
--- NOTE | 2023-08-31 12:35 | Hospitalist Progress Note ---
Date of Service August 31, 2023 Assessment & Plan (1) Anaphylaxis: Plan: Severe anaphylaxis from peanut allergy requiring intravenous epinephrine drip and intubation. Now extubated on 08/30, much improved facial swelling, urticaria, and respiratory status COntinue Solu-Medrol and convert to po prednisone taper after discharge COntinue scheduled diphenhydramine but decrease to q8h, continue IV pepcid Monitor for any worsening of symptoms again regular diet with nut and peanut allergy Tryptase drawn and pending Recommend f/u with Proof Machine Operator in [place] after discharge (2) Acute respiratory failure with hypoxia and hypercapnia: Plan: requiring intubation and mech vent, now extubated, much improved 2/2 anaphylaxis Viral resp panel BioFire negative on admission, CXR negative weaned to nasal cannula-continue to wean off Duonebs prn (3) Acute respiratory acidosis: Plan: Initial POC ABG after intubation with pH 6.974, PaCO2 110. Resolved with respiratory ventilator support Plan DVT proph-not on any thus far but now extubated so can ambulate, low risk Dispo-downgrade from ICU to PCU, likely dc to home tomorrow Admission and Anticipated Discharge Date Admission Date: August 29, 2023 Subjective Pt extubated this AM. Has some itching on his neck but otherwise feels well. GF at bedside said his facial swelling is significantly improved from previous. He denies SOB or sore throat. Is on nasal cannula Physical Exam Constitutional: WD/WN, vitals as above ENMT: external ear and nose normal, oropharynx normal Neck: trachea midline, no thyromegaly Respiratory: normal respiratory effort, lungs clear to auscultation Cardiovascular: RRR, no murmur, no edema Chest (Breasts): Chest: normal inspection of chest Gastrointestinal (Abdomen): normal bowel sounds, soft, nontender, no hepatosplenomegaly Musculoskeletal: Extremities: extremities normal to inspection; no cyanosis and no clubbing Skin: + rash (very mild erythema on anterior n frederick) Neurologic: moves all extremities and awake; no focal motor deficits Psychiatric: A+Ox3, euthymic affect Lymphatic: no lymphedema Results & Data Results & Data Vital Signs (Past 12 Hours) Vital Signs Temp Pulse Pulse Resp BP Pulse Ox O2 Del Method 08/31/23 12:00 150/84 H 08/31/23 12:00 101 H 18 95 08/31/23 11:50 100 H 20 93 08/31/23 11:40 96 H 15 95 08/31/23 11:30 146/90 H 08/31/23 11:30 37.4 C 90 12 95 08/31/23 11:20 37.3 C 101 H 17 99 08/31/23 11:10 37.3 C 108 H 20 99 08/31/23 11:00 129/84 08/31/23 11:00 37.3 C 106 H 16 98 08/31/23 10:50 37.3 C 87 15 99 08/31/23 10:40 37.3 C 92 H 17 99 08/31/23 10:30 37.3 C 85 13 98 08/31/23 10:30 134/78 08/31/23 10:20 37.4 C 114 H 19 100 08/31/23 10:10 37.4 C 118 H 22 99 08/31/23 10:00 37.4 C 122 H 24 100 08/31/23 10:00 144/72 H 08/31/23 09:50 37.4 C 101 H 11 L 100 08/31/23 09:40 37.4 C 109 H 17 99 08/31/23 09:30 145/72 H 08/31/23 09:30 37.5 C 105 H 25 H 98 08/31/23 09:20 37.4 C 121 H 10 L 100 08/31/23 09:10 37.3 C 110 H 13 100 08/31/23 09:00 37.3 C 82 10 L 96 08/31/23 09:00 126/58 L 08/31/23 08:50 37.4 C 81 11 L 97 08/31/23 08:40 37.3 C 80 11 L 99 08/31/23 08:30 126/59 L 08/31/23 08:30 37.3 C 75 16 98 08/31/23 08:20 37.4 C 79 20 99 08/31/23 08:10 37.4 C 85 20 99 08/31/23 08:00 115/48 L 08/31/23 08:00 37.3 C 84 20 97 08/31/23 08:00 08/31/23 07:50 Mechanical Vent 08/31/23 07:50 37.3 C 76 20 99 08/31/23 07:40 69 20 99 03/25/24 07:40 37.3 C 65 24 99 08/31/23 07:30 121/60 08/31/23 07:30 37.3 C 67 20 97 08/31/23 07:20 37.3 C 89 17 100 08/31/23 07:10 37.2 C 66 20 99 08/31/23 07:00 120/60 08/31/23 07:00 37.2 C 67 20 97 08/31/23 06:50 37.3 C 67 20 99 08/31/23 06:49 67 08/31/23 06:40 37.3 C 68 20 99 08/31/23 06:30 37.2 C 67 20 97 08/31/23 06:30 119/61 08/31/23 06:20 37.3 C 68 20 99 08/31/23 06:10 37.2 C 71 20 99 08/31/23 06:00 122/59 L 08/31/23 06:00 37.2 C 69 20 97 08/31/23 05:30 114/56 L 08/31/23 05:30 37.2 C 66 20 97 08/31/23 05:00 37.3 C 68 20 97 08/31/23 05:00 118/57 L 08/31/23 04:30 115/58 L 08/31/23 04:30 37.3 C 71 20 97 08/31/23 04:00 110/55 L 08/31/23 04:00 37.2 C 67 20 97 08/31/23 03:48 08/31/23 03:30 115/54 L 08/31/23 03:30 37.2 C 67 20 98 08/31/23 03:00 120/55 L 08/31/23 03:00 37.2 C 74 20 97 08/31/23 02:30 115/52 L 08/31/23 02:30 37.2 C 82 20 98 08/31/23 02:05 76 20 99 08/31/23 02:05 75 20 99 Mechanical Vent 08/31/23 02:00 113/58 L 08/31/23 02:00 37.2 C 69 20 98 08/31/23 01:30 117/59 L 08/31/23 01:30 37.2 C 66 20 98 08/31/23 01:00 120/58 L 08/31/23 01:00 37.2 C 68 20 97 FiO2 08/31/23 12:00 08/31/23 12:00 08/31/23 11:50 08/31/23 11:40 08/31/23 11:30 08/31/23 11:30 08/31/23 11:20 08/31/23 11:10 08/31/23 11:00 08/31/23 11:00 08/31/23 10:50 08/31/23 10:40 08/31/23 10:30 08/31/23 10:30 08/31/23 10:20 08/31/23 10:10 08/31/23 10:00 08/31/23 10:00 08/31/23 09:50 08/31/23 09:40 08/31/23 09:30 08/31/23 09:30 08/31/23 09:20 08/31/23 09:10 08/31/23 09:00 08/31/23 09:00 08/31/23 08:50 08/31/23 08:40 08/31/23 08:30 08/31/23 08:30 08/31/23 08:20 08/31/23 08:10 08/31/23 08:00 08/31/23 08:00 08/31/23 08:00 30 08/31/23 07:50 30 08/31/23 07:50 08/31/23 07:40 30 08/31/23 07:40 08/31/23 07:30 08/31/23 07:30 08/31/23 07:20 08/31/23 07:10 08/31/23 07:00 08/31/23 07:00 08/31/23 06:50 08/31/23 06:49 08/31/23 06:40 08/31/23 06:30 08/31/23 06:30 08/31/23 06:20 08/31/23 06:10 08/31/23 06:00 08/31/23 06:00 08/31/23 05:30 08/31/23 05:30 08/31/23 05:00 08/31/23 05:00 08/31/23 04:30 08/31/23 04:30 08/31/23 04:00 08/31/23 04:00 08/31/23 03:48 30 08/31/23 03:30 08/31/23 03:30 08/31/23 03:00 08/31/23 03:00 08/31/23 02:30 08/31/23 02:30 08/31/23 02:05 30 08/31/23 02:05 30 08/31/23 02:00 08/31/23 02:00 08/31/23 01:30 08/31/23 01:30 08/31/23 01:00 08/31/23 01:00 Laboratory Results CBC, BMP, magnesium, blood cxs reviewed PG Care Time/CCT Total # of Minutes Spent Total Time Spent with Patient: Total time spent is greater than 50% in coordination of care (as documented) at patient's floor/unit and/or counseling patient: Coding Level of Care Code 08704 SUB INP/OBS CARE 3/50MIN Diagnoses Anaphylaxis T78.2XXA Encounter type: initial encounter Acute respiratory failure with hypoxia and hypercapnia J96.01; J96.02 Acute respiratory acidosis J96.02 (1) Anaphylaxis Encounter type: initial encounter Qualified Code(s): T78.2XXA - Anaphylactic shock, unspecified, initial encounter
--- NOTE | 2023-08-31 13:59 | Electrocardiogram Report ---
Test Reason : Blood Pressure : / mmHG Vent. Rate : 083 BPM Atrial Rate : 083 BPM P-R Int : 188 ms QRS Dur : 114 ms QT Int : 374 ms P-R-T Axes : 073 058 014 degrees QTc Int : 439 ms Normal sinus rhythm Possible Left atrial enlargement Incomplete right bundle branch block Borderline ECG When compared with ECG of 29-AUG-2023 18:26, Vent. rate has decreased BY 42 BPM Questionable change in QRS axis Non-specific change in ST segment in Anterior leads T wave inversion less evident in Inferior leads T wave inversion no longer evident in Lateral leads Confirmed by Neo Landon ([id number]) on 08/31/2023 1:59:10 PM Referred By: REFERRED SELF Confirmed By:Neo Landon
[2023-08-31] MEDS ORDERED: diphenhydrAMINE 50 MG/ML VIAL IV SCH (14:00)
[2023-08-31] MEDS: diphenhydrAMINE 50 MG/ML VIAL IV SCH ×2 (14:25→21:50)
[2023-08-31] MEDS: diphenhydrAMINE 50 MG/ML VIAL IV STA (16:22)
[2023-08-31] MEDS: methylPREDNISolone 40 MG in SYRINGE 0 ML IV SCH (18:21)
[2023-08-31] MEDS: LACTULOSE SYRUP 30 GM/45 ML UDP PO STA (18:22)
[2023-08-31] MEDS ORDERED: POLYETHYLENE (MIRALAX) 17 GM PACK PO PRN (20:19)
[2023-08-31] MEDS: ACETAMINOPHEN 325 MG TAB PO PRN (20:25)
[2023-08-31] MEDS ORDERED: methylPREDNISolone 40 MG in SYRINGE 0 ML IV SCH (21:00)
--- NOTE | 2023-09-01 10:46 | Discharge Summary ---
Discharge Summary Date of Service September 01, 2023 Notes For Next Care Provider Needs follow up with Secret Service Agent Medication Changes From Visit Prednisone 40mg po daily x 5 days then decrease by 10mg daily until gone Added hydroxyzine 25mg po tid x 1 week Benadryl 50mg po q8h prn itching/rash Admission HPI Per Admitting Provider Mitchel Correia is a 23 year old male who presents to the ER with anaphylaxis, unresponsiveness and acute respiratory failure with hypoxia and hypercapnia. Unable to get any history from the patient due to unresponsive/sedated state. Reportedly had a cookie with knots and at around 5 PM. Received 2 doses of epinephrine, Benadryl, Solu-Medrol, magnesium prehospital. O2 saturations 80% and wheezing on 15 L nonrebreather mask on arrival in the ER. In the ER he was emergently intubated, placed on propofol and epinephrine drip. Principal Dx & Hospital Course #1 = Principal Diagnosis (1) Anaphylaxis: Severe anaphylaxis from peanut allergy requiring intravenous epinephrine drip and intubation. Now extubated on 08/30, resolved facial swelling, urticaria, and respiratory status normal Received Solu-Medrol and convert to po prednisone taper after discharge Received scheduled diphenhydramine q8h, IV pepcid--> dc to home on hydroxyzine 25mg po tid x 1 week, take benadryl prn rash/itching along with that Tryptase drawn and pending Recommend f/u with Secret Service Agent in [place] after discharge May have some residual intermittent urticaria after anaphylaxis-hence hydroxyzine and prn benadryl, needs f/u with Secret Service Agent (2) Acute respiratory failure with hypoxia and hypercapnia: requiring intubation and mech vent, now extubated, now resolved 2/2 anaphylaxis Viral resp panel BioFire negative on admission, CXR negative Duonebs prn given (3) Acute respiratory acidosis: Initial POC ABG after intubation with pH 6.974, PaCO2 110. Resolved with respiratory ventilator support Plan DVT proph- ambulate, low risk Dispo-dc to home, discussed care with GF and mother at bedside Discharge Exam Constitutional WD/WN, vitals as above ENMT external ear and nose normal, oropharynx normal Neck trachea midline, no thyromegaly Respiratory normal respiratory effort, lungs clear to auscultation Cardiovascular RRR, no murmur, no edema Chest (Breasts) Chest: normal inspection of chest Gastrointestinal (Abdomen) normal bowel sounds, soft, nontender, no hepatosplenomegaly Musculoskeletal Extremities: extremities normal to inspection; no cyanosis and no clubbing Skin no rash Neurologic moves all extremities and awake; no focal motor deficits Psychiatric A+Ox3, euthymic affect Lymphatic no lymphedema Updated Medication List Medication Instructions Recorded Confirmed Type albuterol sulfate 90 mcg/actuation 2 puff inhalation Q6 PRN Wheezing 08/29/23 08/29/23 History aerosol inhaler diphenhydramine HCl 25 mg tablet 75 mg PO ONCE PRN Allergic Reaction 08/29/23 History epinephrine 0.3 mg/0.3 mL 0.3 mg (0.3 mL) subcut UD PRN 09/01/23 Rx injection, auto-injector Anaphylaxis #2 ea hydroxyzine HCl 25 mg tablet 25 mg PO TID #21 tabs 09/01/23 Rx prednisone 10 mg tablet 40 mg (4 x 10 mg) PO DAILY #26 tabs 09/01/23 Rx Hospital Stay Data Consultations 08/29/23 18:22 Consult Pals Specialist Stat 08/29/23 18:37 ED Decision to Admit Stat Diagnostic Imagining Performed 08/30/23 02:19 CT Abd and Pelvis [CT abd pelvis wo con] Stat CT chest diagnostic wo con Stat Pending Results Patient Have Any Pending Studies at Discharge: Yes (Tryptase) Discharge Instructions Given to Patient (Per Discharging Provider) Please continue the prednisone taper over the next 9 days and take the hydroxyzine three times a day for one week. You can take Benadryl as needed for recurrent itching or rash. You should follow up with your PCP and with an Secret Service Agent within the next 1-2 weeks. Total Time Total Time Spent Total Time Spent (In Minutes): 35 min Coding Level of Care Code 19079 INP/OBS DISCH >30 MIN Diagnoses Anaphylaxis T78.2XXA Encounter type: initial encounter Acute respiratory failure with hypoxia and hypercapnia J96.01; J96.02 Acute respiratory acidosis J96.02
[2023-09-02 10:27] LABS: 7-Aminoclonaz, Confirm NEGATIVE ng/mL (<25); Hydro-Alp Ur, GC/MS NEGATIVE ng/mL (<25); Hydroxyethylflurazepam, Conf NEGATIVE ng/mL (<50); Hydroxymidazolam Ur, GC/MS 278 ng/mL (<50); Hydroxytriazolam NEGATIVE ng/mL (<50); Lorazepam, Ur GC/MS NEGATIVE ng/mL (<50); Nordiazepam, Confirm NEGATIVE ng/mL (<50); Oxazepam Ur, GC/MS NEGATIVE ng/mL (<50); Temazepam, Confirm NEGATIVE ng/mL (<50)
== END 2023-09-01 11:00 | disposition home or self-care (01) | DRG 208 ==
LOC: ED 18:02 → SUATTDRO 19:16 → 1E 19:16